=== PATIENT | female | born 1950 | race Caucasian/White ===

== ENCOUNTER 2016-10-03 19:12 | Inpatient (IN) | payer MEDICARE ==
--- NOTE | 2016-10-03 20:03 | EDPRACDOC ---
- General Information Chief Complaint: Dyspnea/Resp distress Stated Complaint: COUGH/PONCHO/FEVER/BACK PAIN Time Seen by Provider: 10/03/16 20:01 Information Source: Patient Mode Of Arrival: Car Home Medications: Home Medications Potassium Chloride [Klor-Con M10] 10 meq PO DAILY 10/03/16 Albuterol/Ipratropium Neb [Duoneb] 3 ml NEB RTQ6 #120 nebu 10/10/16 Aspirin 325 mg PO DAILYWM #30 tablet 10/10/16 Atorvastatin Calcium [Lipitor] 40 mg PO DAILY@1800 #30 tablet 10/10/16 Carvedilol [Coreg] 3.125 mg PO BID #60 tablet 10/10/16 Clopidogrel Bisulfate [Plavix] 75 mg PO DAILY #30 tablet 10/10/16 Docusate Sodium [Colace] 100 mg PO BID PRN #60 capsule 10/10/16 Furosemide [Lasix] 20 mg PO DAILY #30 tablet 10/10/16 Lisinopril [Prinivil] 2.5 mg PO DAILY #30 tablet 10/10/16 Nitroglycerin Sublingual Tab [NTG (NitroStat Sublingual Tab)] 0.4 mg SL PRN PRN #30 tablet 10/10/16 Prednisone [Deltasone, Orasone] 10 mg PO DAILY #40 tablet 10/10/16 Ranolazine [Ranexa] 500 mg PO BID #60 tablet.er 10/10/16 Tiotropium [place] [Spiriva] 18 mcg INH DAILY #1 10/10/16 Allergies/Adverse Reactions: Allergies Allergy/AdvReac Type Severity Reaction Status Date / Time codeine [Codeine] Allergy Anaphylaxis Verified 10/03/16 19:50 * Penicillins Allergy Anaphylaxis Verified 10/03/16 19:50 * - History of Present Illness HPI: SOB, SINCE SATURDAY. SEVERE SOB. H/O PNA. NO H/O CHF. + CHEST PAIN. ED Past Medical History - Patient Medical History Respiratory History: Reports: Emphysema Psychological History: Denies: Substance Use Disorder Systemic History: Denies: Cancer - Social Medical History Social History: Denies: Substance Use Disorder - Physical Exam Constitutional: Alert (Awake) Oriented to: Time, Person, Place Last recorded Vital Signs: Last Vital Signs Temp 99.1 F 10/03/16 19:45 Pulse 108 10/03/16 19:45 Resp 54 H 10/03/16 19:45 BP 122/60 10/03/16 19:45 Pulse Ox 60 L 10/03/16 19:45 Oxygen Pulse Oxygen Saturation 60 O2 Device Room Air Oxygen Flow Rate Fraction of Inspired Oxygen ( FIO2) - HEENT Head: Normal ( normocephalic) Eye Exam: Normal (PERRL, EOMI, Sclera white) Oropharynx: Normal (Pharynx:Moist without exudate,Gums-no swelling) Nose: No Symptoms Reported (septum midline) Neck: Normal (FROM, trachea at midline) - Respiratory/Cardiovascular Respiratory: Rales (DIFFUSE), Tachypnea Cardiovascular: Tachycardia - GI Auscultation: Normal (NABS) Palpation: Normal (Soft,No rebound or guarding, non distended) Tenderness: Non tender Babcock's Sign: Negative - Musculoskeletal Back: Normal (Non-Tender) Extremities: Normal (Normal tone, Pulses 2+ No cyanosis or edema, FROM) - Integumentary Skin: Normal, Warm, Dry Lymphatics: Normal (no adenopathy) - Neurologic Memory Impaired: Normal Motor Function: Normal (Normal tone, Pulses 2+ No cyanosis or edema, FROM) Cranial Nerve: Normal (CN II-X11 intact sensation, strength 5/5) Cerebellar: Normal Mood Description: Normal Perception: Normal ED SOB MDM - Re-evaluation Re-evaluation 1 Re-evaluation Time: 21:22 Re-evaluation: PT IMPROVED. RESPIRATORY BACKED OFF FIO2 TO 45%. - Results Result Diagrams: 10/10/16 05:50 10/10/16 05:50 - EKG EKG #1 EKG Time: 20:07 -: Yes EKG interpreted by me Rate: bpm: 98 [place]bie: Normal Rhythm: ST Block: None ST: Nonsp Comments: ABNORMAL EKG ED Critical Care Note - Critical Care Note Total Time (mins): 30 Comments: Due to the presence of and / or the risk of deterioration, my attendance to this patient required critical care time, including assessment/reassessment, documentation, ordering and interpreting ancillary studies, discussion with ED staff and consultants,patient and family, and excludes time spent on separately billable procedures. - Departure Yes I personally saw and evaluated the patient. Disposition: Admit IP To This Hospital Condition: Improved Final Diagnosis: NSTEMI (non-ST elevated myocardial infarction) Bilateral pneumonia Qualifiers: Pneumonia type: due to unspecified organism Lung location: unspecified part of lung Qualified Code(s): J18.9 - Pneumonia, unspecified organism Sepsis Qualifiers: Sepsis type: sepsis due to unspecified organism Qualified Code(s): A41.9 - Sepsis, unspecified organism Acute respiratory failure Qualifiers: Respiratory failure complication: hypoxia Qualified Code(s): J96.01 - Acute respiratory failure with hypoxia Decision to Admit Time: 20:25 Decision to admit date: 10/03/16 Decision to admit: from ED
[2016-10-03 20:11] LABS: BEb -1.9 (+/- 2); TCO2 25.7 MMOL/L (23-27)
[2016-10-03 20:12] LABS: ABG Draw Site Right Radial; ALLEN'S TEST PASS
--- NOTE | 2016-10-03 20:31 | HISTPHYS ---
- Chief Complaint shortness of breath - History of Present Illness PRIMARY CARE PROVIDER: Dr. Elizalde OCEANIC SCIENCES PROFESSOR: Dr. Oakley HPI: The patient is a 66-year-old woman with COPD, hypertension, who presents with acute shortness of breath along with some chest pain. Onset: 3 days ago. Duration: intermittent. Location: left chest. Radiation: to back. Character: 10/10 at times; now it is gone. Dull like a toothache. Alleviated by: Nothing. Exacerbated by: Nothing. Associated Symptoms: Shortness of breath. No diaphoresis. Coughing productive of yellow sputum. Wheezing. Fever, chills. Chest pain but no palpitations. No leg swelling or weight gain. Treatments: none at home except usual medications. She has chronic respiratory failure and wears 2L NC oxygen, but only at night. Cardiac Risk review: Positive for hypertension, smoking, and family history. No known hyperlipidemia or diabetes. - Medical History Cardiac History: Reports: Hypertension. Denies: Hypercholesterolemia Respiratory History: Reports: COPD, Emphysema, Other (Wears 2L oxygen at night only.) Musculoskeletal History: Reports: Arthritis Systemic History: Denies: Cancer Neurological History: Denies: Cerebrovascular Accident Psychological History: Denies: Substance Use Disorder OTHER HISTORY: ECHOCARDIOGRAM 10/05/2012: EF 60%. Unremarkable study. - Surgical History Reports: Other (No surgeries.) - Medictions/Allergies Allergies codeine [Codeine] Allergy (Verified 10/03/16 19:50) Anaphylaxis* PER PT Penicillins Allergy (Verified 10/03/16 19:50) Anaphylaxis* PER PT Current Medication List: Reviewed Home Medications Potassium Chloride [Klor-Con M10] 10 meq PO DAILY 10/03/16 Triamterene/Hydrochlorothiazid [Triamterene-Hctz 75-50 mg Tab] 1 tab PO DAILY - Family History Reports: Cancer (Mother: ovarian cancer.), Cardiac Disorders (Mother and Father : [place] in 70s.). Denies: Diabetes - Social History Smoking Status: Heavy tobacco smoker (5 or more cigarettes/day or daily pipe/ cigar) (Half ppd currently. Previously 1 ppd. Started 20 yo approx.) Social History: Denies: Alcohol Use, Substance Use Disorder - Review of Systems GENERAL: Fever, chills. No diaphoresis. Positive for fatigue/malaise. HEENT: No ear pain or discharge. No nasal discharge or bleeding. No throat pain or swelling. No eye pain or eye redness. RESPIRATORY: Shortness of breath. No diaphoresis. Coughing productive of yellow sputum. Wheezing. CARDIOVASCULAR: Chest pain but no palpitations. GI: No abdominal pain, nausea, vomiting, diarrhea, constipation, or bloody stool. NEUROLOGICAL: No headache or focal weakness. INTEGUMENT: no rashes, itching, or lesions. LYMPHATIC SYSTEM: no lymph node swelling or pain. MUSCULOSKELETAL: no pain or joint swelling. GENITOURINARY: No dysuria or hematuria. ENDOCRINE: No polyuria or polydipsia. HEME: No chronic anemia, bleeding. Positive for easy bruising. - Physical Exam Vital Signs: Initial Vitals Temperature 99.1 F 10/03/16 19:45 Pulse Rate 108 10/03/16 19:45 Respiratory Rate 54 H 10/03/16 19:45 Blood Pressure 122/60 10/03/16 19:45 Pulse Oxygen Saturation 60 L 10/03/16 19:45 Weight: 67 kg Height: 5 feet 6 inches BMI: 24 - Other Exam Other Exam Findings: GENERAL: Ill-appearing, well nourished, in acute distress. HEENT: Normocephalic, atraumatic; pupils equal and round. Nares patent, without discharge or bleeding. No oropharyngeal lesions or erythema. Mucous membranes are dry. NECK: is supple, no masses, trachea midline. RESPIRATORY: Clear to auscultation bilaterally. Chest wall movements are symmetric. Use of accessory muscles to breathe. Tachypnea, severe. Bilateral wheezing. Bilateral rhonchi. No rales. Evaluated while on BiPAP. CARDIOVASCULAR: Normal S1, S2. Murmur 2/6 systolic. No rubs, or gallops. PMI non -displaced. Carotids: no carotid bruits. Mild tachycardia. DP pulses 1-2+ bilaterally. GI: soft, nontender, non-distended, normal active bowel sounds. No hepatosplenomegaly. INTEGUMENT: Clean, dry, and intact. No rashes. No lesions. MUSCULOSKELETAL: Moving all extremities. No cyanosis. No clubbing. Edema: none bilaterally. NEUROLOGICAL: Cranial nerves 2-12 grossly intact. Motor 4/5 throughout. Reflexes : 2+ bilaterally. Babinski: toes downgoing bilaterally. Intact Finger to nose. Sensory grossly intact to light touch. Intact rapid alternating movements bilaterally. No pronator drift. PSYCHIATRIC: Fully oriented. Normal and appropriate affect. LYMPHATIC: No cervical lymphadenopathy. No supraclavicular lymphadenopathy. - Lab Results Laboratory Results - last 24 hr 10/03/16 10/03/16 10/03/16 19:53 20:05 20:10 WBC RBC Hgb Hct MCV MCH MCHC RDW Plt Count MPV Neut % (Auto) Lymph % (Auto) [place] % (Auto) Eos % (Auto) Baso % (Auto) Absolute Neuts (auto) Absolute Lymphs (auto) Seg Neuts % (Manual) Band Neutrophils % Lymphocytes % (Manual) Monocytes % (Manual) Basophils % (Manual) Absolute Neutrophils Absolute Lymphocytes Vacuolated Neuts Toxic Granulation Platelet Estimate RBC Morphology PT INR APTT Puncture Site Right radial pH 7.330 L pCO2 46.0 H pO2 49.0 L* HCO3 24.3 Total CO2 25.7 Base Excess -1.9 FiO2 % 15 liters nrb Specimen Drawn By Robcha Sodium 136 L Potassium 3.1 L Chloride 92 L Carbon Dioxide 28 Anion Gap 19 H BUN 36 H Creatinine 1.50 H Estimated GFR (MDRD) 35 L Glucose 119 H Calculated Osmolality 271 Lactic Acid Calcium 9.5 Corrected Calcium 9.6 Total Bilirubin 0.9 AST 43 H ALT 37 Alkaline Phosphatase 107 Creatine Kinase 87 Troponin I 0.58 H* Hxo-Q-Njynocgoxmr Pept 9050 H Total Protein 7.8 Albumin 3.9 Lipase 47 Urine Color Yellow Urine Clarity Cldy Urine pH 6.0 Ur Specific [place] 1.015 Urine Protein 3+ H Urine Glucose (UA) Neg Urine Ketones 1+ H Urine Occult Blood 3+ H Urine Nitrite Neg Urine Bilirubin Neg Urine Urobilinogen 2 H Ur Leukocyte Esterase Neg Urine RBC 10-20 H Urine WBC 5-10 H Ur Epithelial Cells 2+ Amorphous Sediment Occ Urine Bacteria Few Granular Casts Tntc H Urine Mucus Occ 10/03/16 10/03/16 10/03/16 20:10 20:10 20:10 WBC 15.9 H RBC 4.73 Hgb 13.7 Hct 41.5 MCV 88 MCH 28.9 MCHC 32.9 L RDW 14.1 Plt Count 262 MPV 8.5 Neut % (Auto) Cancelled Lymph % (Auto) Cancelled [facility] % (Auto) Cancelled Eos % (Auto) Cancelled Baso % (Auto) Cancelled Absolute Neuts (auto) Cancelled Absolute Lymphs (auto) Cancelled Seg Neuts % (Manual) 61 Band Neutrophils % 8 H Lymphocytes % (Manual) 13 L Monocytes % (Manual) 17 H Basophils % (Manual) 1 Absolute Neutrophils 10.97 H Absolute Lymphocytes 2.07 Vacuolated Neuts 1+ Toxic Granulation 1+ Platelet Estimate Norm RBC Morphology Norm PT 10.7 INR 1.0 APTT 30.3 Puncture Site pH pCO2 pO2 HCO3 Total CO2 Base Excess FiO2 % Specimen Drawn By Sodium Potassium Chloride Carbon Dioxide Anion Gap BUN Creatinine Estimated GFR (MDRD) Glucose Calculated Osmolality Lactic Acid 1.7 Calcium Corrected Calcium Total Bilirubin AST ALT Alkaline Phosphatase Creatine Kinase Troponin I Qnl-O-Xvdpbzjrjof Pept Total Protein Albumin Lipase Urine Color Urine Clarity Urine pH Ur Specific [place] Urine Protein Urine Glucose (UA) Urine Ketones Urine Occult Blood Urine Nitrite Urine Bilirubin Urine Urobilinogen Ur Leukocyte Esterase Urine RBC Urine WBC Ur Epithelial Cells Amorphous Sediment Urine Bacteria Granular Casts Urine Mucus Troponin #2 at 23:15: 0.64 H* - Diagnostic Findings EK beats per minute. Normal sinus rhythm. ST depression in leads 2, 3, and AVF. Nonspecific ST abnormality. Reviewed EKG personally. Chest x-ray, viewed personally: EXAM: PORTABLE CHEST - 1 VIEW COMPARISON: 01/05/2015 FINDINGS: Cardiac shadow is stable. Patchy infiltrates are noted bilaterally but worst in the right upper lobe. No sizable effusion is seen. No acute bony abnormality is noted. IMPRESSION: Patchy bilateral infiltrates likely related to pneumonia. Followup PA and lateral chest X-ray is recommended in 3-4 weeks following trial of antibiotic therapy to ensure resolution and exclude underlying malignancy. - Assessment (1) Acute and chronic respiratory failure with hypoxia J96.21 - ACUTE AND CHRONIC RESPIRATORY FAILURE WITH HYPOXIA Acute Present on Admission: Yes Wears 2L NC but only at night. Severe respiratory distress with peripheral O2 sat of only 60 when she arrived in the emergency department. Patient has dyspnea and is not improving. Patient's PO2 is low. Etiology is likely multifactorial, with pneumonia and COPD as the primary causes. Plan: Place patient on oxygen by BiPAP 65 % and increase as needed. Monitor oxygen saturation levels and keep O2 sats greater than 91%. (2) Acute coronary syndrome I24.9 - ACUTE ISCHEMIC HEART DISEASE, UNSPECIFIED Acute Present on Admission: Yes Patient with chest pain, EKG ST depressions, and elevated troponin. While this could be due to sepsis, the combination of history and findings is concerning for NSTEMI. Plan: Obtain cardiac enzymes x 3. Place patient on telemetry. Give patient oxygen, aspirin. Give nitroglycerin as needed for chest pain. Give statin. Start beta ashok and PARKER inhibitor if patient's blood pressure is not too low. Lovenox 1 mg/kg q 12 hours. (3) Sepsis A41.9 - SEPSIS, UNSPECIFIED ORGANISM Acute Present on Admission: Yes Qualifiers: Sepsis type: sepsis due to unspecified organism Qualified Code(s): A41.9 - Sepsis, unspecified organism Early sepsis. Present on admission. Criteria: Pulse 108. Respiratory rate 54. WBCs 15.9. Source: pneumonia. Plan: Sepsis order set. IV antibiotics: IV ceftriaxone and IV Levaquin IV fluids to provide volume. Monitor for signs of volume depletion, monitor blood pressure carefully. If still hypotensive with IV fluids consider pressors. Close monitoring. Telemetry. IVF: initial IVF 30 mL/kg x 1, then 250 mL/hr x 1 L, then maintenance IVF. (4) Bacterial pneumonia J15.9 - UNSPECIFIED BACTERIAL PNEUMONIA Acute Present on Admission: Yes Pneumonia. Severe. Requiring continuous oxygen support. Type: Community acquired pneumonia. Criteria for diagnosis: Chest x-ray suggestive of pneumonia, rhonchi on physical exam. Likely bacterial. Plan: Admit to ICU due to severity. Sputum culture has been ordered. Treat with IV ceftriaxone and IV Levaquin. Monitor oxygen saturation levels. (5) COPD exacerbation J44.1 - CHRONIC OBSTRUCTIVE PULMONARY DISEASE W (ACUTE) EXACERBATION Acute Present on Admission: Yes COPD exacerbation, severe. Plan: Nebs of Duoneb q 6 hours scheduled and albuterol q 2 hours prn. Sputum culture ordered. IV ceftriaxone and IV Levaquin. IV methylprednisolone. Continuous oxygen support. Keep sats below 95% due to COPD. (6) Acute kidney injury N17.9 - ACUTE KIDNEY FAILURE, UNSPECIFIED Acute Present on Admission: Yes Baseline Cr is 0.57. Admission Cr is 1.5. Likely due to dehydration. Plan: IVFs. (7) Elevated brain natriuretic peptide (BNP) level R79.89 - OTHER SPECIFIED ABNORMAL FINDINGS OF BLOOD CHEMISTRY Acute Present on Admission: Yes Elelvated BNP of 9050 on admission. Patient denies history of CHF; she denies recent lower extremity edema or weight gain. Patient is at risk for volume overload due to need for IVF for sepsis. Plan: Monitor lung exam. (8) Hypokalemia E87.6 - HYPOKALEMIA Acute Present on Admission: Yes Replace potassium with KCl. Check magnesium level and replace as needed. (9) Proteinuria R80.9 - PROTEINURIA, UNSPECIFIED Acute Present on Admission: Yes Patient with 3+ proteinuria on admission. Plan: Outpatient recheck recommended with primary care physician. (10) Tobacco abuse Z72.0 - TOBACCO USE Acute Present on Admission: Yes Counseled to quit. (11) Abnormal chest x-ray R93.8 - ABNORMAL FINDINGS ON DIAGNOSTIC IMAGING OF BODY STRUCTURES Acute Present on Admission: Yes CXR impression: Patchy bilateral infiltrates likely related to pneumonia. Followup PA and lateral chest X-ray is recommended in 3-4 weeks following trial of antibiotic therapy to ensure resolution and exclude underlying malignancy. Plan: * NOTE to DR. ELIZALDE: Please consider ordering a follow up PA and Lateral chest x-ray in 3-4 weeks to ensure resolution. - Plan In summary, this patient is acutely and critically ill. The patient requires treatment of vital organ failure and measures to prevent further life- threatening deterioration of condition. Reviewed old records. Reviewed EKG personally. Review chest x-ray personally. I have spent 70 min in the critical care of this patient. Case Care Discussed with: Patient, Nursing Staff Critical Care: Yes Code: 291 - Focused CV Perfusion Exam Date exam occurred: 10/03/16 Time of Exam: 22:20 Vital Signs: Last Vital Signs Temp 99.1 F 10/03/16 19:45 Pulse 101 10/03/16 21:38 Resp 47 H 10/03/16 21:38 BP 104/59 L 10/03/16 21:38 Pulse Ox 93 10/03/16 21:38 Respiratory: Chest non-tender, Respiratory distress, Rhonchi, Wheezing Cardiovascular/Chest: Tachycardia, Systolic murmur Capillary Refill: Immediate Peripheral pulses: Diminished: Dorsalis pedis (R), Dorsalis pedis (L), Posterior tibialis (R), Posterior tibialis (L), Full: Radial (R), Radial (L) Skin Color: Unremarkable. negative: Pale, Cyanotic Skin Turgor: <3 Seconds
[2016-10-03 20:38] LABS: MPV 8.5 fL (7.4-10.4)
[2016-10-03] MEDS ORDERED: Albuterol/Ipratropium Neb 3 ML NEB NEB ONE (20:40)
--- NOTE | 2016-10-03 20:40 | DIRPT ---
CLINICAL DATA: Shortness of breath and cough for 3 days EXAM: PORTABLE CHEST - 1 VIEW COMPARISON: 01/05/2015 FINDINGS: Cardiac shadow is stable. Patchy infiltrates are noted bilaterally but worst in the right upper lobe. No sizable effusion is seen. No acute bony abnormality is noted. IMPRESSION: Patchy bilateral infiltrates likely related to pneumonia. Followup PA and lateral chest X-ray is recommended in 3-4 weeks following trial of antibiotic therapy to ensure resolution and exclude underlying malignancy. Electronically Signed By: To Zaldivar M.D. On: 10/03/2016 20:37
[2016-10-03 20:42] LABS: BLOOD UREA NITROGEN 36 MG/DL (7-17); CALC CORRECTED 9.6 MG/DL (8.4-10.2); CALCIUM 9.5 MG/DL (8.4-10.2); CALCULATED OSMOLALITY 271 MOs/Kg (270-290); CHLORIDE 92 mEq/L (98-107); CPK TOTAL WITH POSSIBLE MB 87 IU/L (30-134); GLUCOSE 119 MG/DL (70-99); SODIUM LEVEL 136 mEq/L (137-146); TOTAL PROTEIN 7.8 G/DL (6.3-8.2)
[2016-10-03 20:45] LABS: PARTIAL THROMB. TIME 30.3 SEC (22-35)
[2016-10-03 20:46] LABS: AMORPHOUS OCC; LEUKOCYTES/URINE NEG (NEGATIVE); NITRITE/URINE NEG (NEGATIVE); URINE OCCULT BLOOD 3+ (NEG/TRACE)
[2016-10-03] MEDS ORDERED: NS 500 ML IV ONE (21:00)
[2016-10-03] MEDS ORDERED: Levofloxacin 750 mg/150 ml D5W 750 MG/150 ML RTU IV ONE (21:01)
[2016-10-03] MEDS ORDERED: CEFTRIAXONE 1 GM in D5W 100 ML IV ONE (21:05)
[2016-10-03 21:06] LABS: SEG NEUTROPHIL 61 % (45-76)
[2016-10-03 21:08] LABS: TOTAL CELL COUNT 100
[2016-10-03] MEDS ORDERED: NS 1,000 ML IV ONE ×2 (21:15→22:47)
[2016-10-03] MEDS ORDERED: ASPIRIN 300 MG SUPP PR ONE (21:20)
[2016-10-03] MEDS ORDERED: SIMETHICONE 80 MG TAB PO PRN (22:42)
[2016-10-03] MEDS ORDERED: SENNA CONCENTRATE TAB PO PRN (22:42)
[2016-10-03] MEDS ORDERED: BENZONATATE 100 MG PERLES PO PRN (22:42)
[2016-10-03] MEDS ORDERED: TEMAZEPAM 15 MG CAP PO PRN (22:42)
[2016-10-03] MEDS ORDERED: BISACODYL 5 MG TAB PO PRN (22:42)
[2016-10-03] MEDS ORDERED: PROMETHAZINE 25 MG/ML VIAL IV PRN (22:42)
[2016-10-03] MEDS ORDERED: Docusate Sodium 100 MG CAP PO PRN (22:42)
[2016-10-03] MEDS ORDERED: ONDANSETRON HCL 4 MG/2 ML VIAL IV PRN (22:42)
[2016-10-03] MEDS ORDERED: GUAIFEN 100 MG-DEXTROMETH 10 MG PER 5 ML PO PRN (22:42)
[2016-10-03] MEDS ORDERED: NITROGLYCERINE 0.4 MG TAB SL PRN (22:42)
[2016-10-03] MEDS ORDERED: ALBUTEROL 0.083% 3 ML NEB NEB PRN (22:51)
[2016-10-03] MEDS ORDERED: Enoxaparin 1 mg per kg per dose SQ SCH (23:00)
[2016-10-03] MEDS ORDERED: LISINOPRIL 2.5 MG TAB PO SCH (23:00)
[2016-10-03] MEDS ORDERED: Pharmacy Order Set Alert SCH ×2 (23:00)
[2016-10-03] MEDS: CARVEDILOL 3.125 MG TAB PO SCH (23:28)
[2016-10-03] MEDS: ATORVASTATIN 40 MG TAB PO SCH (23:28)
[2016-10-03] MEDS: ENOXAPARIN 80 MG/0.8 ML PFS SQ SCH (23:34)
[2016-10-03] MEDS: METHYLPREDNISOLONE 125 MG/2 ML VIAL IV SCH (23:36)
[2016-10-04] MEDS ORDERED: NS 1,000 ML IV ONE (00:48)
[2016-10-04] MEDS ORDERED: Vaccine Screening Complete SCH (01:00)
[2016-10-04 02:40] LABS: ALLEN'S TEST PASS; BEb -1.6 (+/- 2); TCO2 27.2 MMOL/L (23-27)
[2016-10-04] MEDS: Albuterol/Ipratropium Neb 3 ML NEB NEB SCH ×5 (02:40→19:47)
[2016-10-04 02:43] LABS: ABG Draw Site Right Radial; BI-PAP 14/7 cm H2O
[2016-10-04] MEDS: KCl 10 mEq/100 ml Premix (Run) 10 MEQ/100 ML RTU IV SCH ×6 (03:12→08:18)
[2016-10-04 04:05] LABS: MPV 8.7 fL (7.4-10.4)
[2016-10-04 04:44] LABS: BLOOD UREA NITROGEN 34 MG/DL (7-17); CALCIUM 8.1 MG/DL (8.4-10.2); CALCULATED OSMOLALITY 272 MOs/Kg (270-290); CHLORIDE 98 mEq/L (98-107); GLUCOSE 128 MG/DL (70-99); LDL (calc.) 52.6 MG/DL (<100); SODIUM LEVEL 136 mEq/L (137-146); VLDL (calc.) 12.4 MG/DL (5-40)
[2016-10-04] MEDS: NS 1,000 ML IV SCH ×3 (05:17→22:33)
[2016-10-04] MEDS: METHYLPREDNISOLONE 125 MG/2 ML VIAL IV SCH ×3 (06:12→22:33)
--- NOTE | 2016-10-04 08:04 | GENMEDPROG ---
Chief Complaint: Elevated troponin, pneumonia, COPD exacerbation Subjective Note: Says that she is feeling more comfortable, she is still tachypneic. Breathing on the BiPAP since admission to the intensive care unit. Denies any current chest pain, nausea. No significant cough at this time. Notes Reviewed: Yes Events from last night noted and discussed with Clinical Staff Current Medication List: Reviewed - Physical Examination Vital Signs and I&O: Last Vital Signs Temp 97.9 F 10/04/16 06:00 Pulse 76 10/04/16 07:31 Resp 21 10/04/16 05:30 BP 94/57 L 10/04/16 06:00 Pulse Ox 96 10/04/16 06:00 Oxygen Pulse Oxygen Saturation 96 O2 Device BiPAP Oxygen Flow Rate Fraction of Inspired Oxygen ( 80 FIO2) Intake & Output 10/02/16 10/03/16 10/04/16 10/05/16 06:59 06:59 06:59 06:59 Intake Total 2662 Output Total 175 Balance 2487 Patient's weight 67.495 kg General: Alert, Oriented x3, Cooperative, Mild distress Neck: Normal Trachea alignment, Normal inspection Lymphatics: Normal (no adenopathy) Respiratory: Rales (DIFFUSE), Tachypnea. negative: Accessory Muscle Use Cardiovascular: Regular rate, No Gallops,Rubs/Murmurs GI: Normal bowel sounds, Soft, Non tender (non distended) Extremities/Musculoskeletal: Other (Normal Tone). negative: Edema, Cyanosis Psych/Mental Status: Appropriate, Normal Affect, Cooperative Lab/DI/Studies Reviewed: Laboratory Tests 10/03/16 10/04/16 10/04/16 20:10 03:15 03:15 WBC 11.5 H Hgb 11.7 L D Potassium 3.1 L 3.3 L - Assessment (1) Abnormal chest x-ray Acute R93.8 - ABNORMAL FINDINGS ON DIAGNOSTIC IMAGING OF BODY STRUCTURES Comment/Plan: CXR impression: Patchy bilateral infiltrates likely related to pneumonia. Followup PA and lateral chest X-ray is recommended in 3-4 weeks following trial of antibiotic therapy to ensure resolution and exclude underlying malignancy. Plan: Treating as below. (2) Acute and chronic respiratory failure with hypoxia Acute J96.21 - ACUTE AND CHRONIC RESPIRATORY FAILURE WITH HYPOXIA Comment/ Plan: Wears 2L NC but only at night. Severe respiratory distress with peripheral O2 sat of only 60 when she arrived in the emergency department. Patient has dyspnea and is not improving. Patient's PO2 is low. Etiology is likely multifactorial, with pneumonia and COPD as the primary causes. Plan: Place patient on oxygen by BiPAP 65 % and increase as needed. Monitor oxygen saturation levels and keep O2 sats greater than 91%. Second BiPAP done early this morning with improving oxygenation. She is still tachypneic, though her CO2 level is acceptable. If she still tachypneic and a couple of hours, will obtain repeat blood gas. (3) Acute coronary syndrome Acute I24.9 - ACUTE ISCHEMIC HEART DISEASE, UNSPECIFIED Comment/Plan: Patient with chest pain, EKG ST depressions, and elevated troponin. While this could be due to sepsis, the combination of history and findings is concerning for NSTEMI. Plan: Obtain cardiac enzymes x 3. Place patient on telemetry. Give patient oxygen, aspirin. Give nitroglycerin as needed for chest pain. Give statin. Beta-ashok and low-dose PARKER-inhibitor have been initiated. Lovenox 1 mg/kg q 12 hours. Cardiology has been consulted by admitting physician. (4) Acute kidney injury Acute N17.9 - ACUTE KIDNEY FAILURE, UNSPECIFIED Comment/Plan: Baseline Cr is 0.57. Admission Cr is 1.5. Likely due to dehydration. Plan: IVFs. (5) Acute respiratory failure Acute J96.00 - ACUTE RESPIRATORY FAILURE, UNSP W HYPOXIA OR HYPERCAPNIA Qualifiers: Respiratory failure complication: hypoxia Qualified Code(s): J96.01 - Acute respiratory failure with hypoxia (6) Bacterial pneumonia Acute J15.9 - UNSPECIFIED BACTERIAL PNEUMONIA Comment/Plan: Pneumonia. Severe. Requiring continuous oxygen support. Type: Community acquired pneumonia. Criteria for diagnosis: Chest x-ray suggestive of pneumonia, rhonchi on physical exam. Likely bacterial. Plan: Admit to ICU due to severity. Sputum culture has been ordered. Treat with IV ceftriaxone and IV Levaquin. Monitor oxygen saturation levels. (7) COPD exacerbation Acute J44.1 - CHRONIC OBSTRUCTIVE PULMONARY DISEASE W (ACUTE) EXACERBATION Comment/Plan: COPD exacerbation, severe. Plan: Nebs of Duoneb q 6 hours scheduled and albuterol q 2 hours prn. Sputum culture ordered. IV ceftriaxone and IV Levaquin. IV methylprednisolone. Continuous oxygen support. Keep sats below 95% due to COPD. (8) Hypokalemia Acute E87.6 - HYPOKALEMIA Comment/Plan: Replace potassium with KCl. Check magnesium level and replace as needed. (9) NSTEMI (non-ST elevated myocardial infarction) Acute I21.4 - NON-ST ELEVATION (NSTEMI) MYOCARDIAL INFARCTION - Plan In summary this patient is acutely and critically ill. The patient requires treatment of vital organ failure and measures to prevent further life- threatening deterioration of the above conditions. I personally reviewed and ordered lab testing, as well as imaging. I reviewed old medical records from previous hospitalizations as available, and spent the time mentioned below in critical care of this patient including counseling and coordination of care. Total Time: 70
[2016-10-04] MEDS ORDERED: LORAZEPAM 2 MG/ML VIAL IV PRN (08:36)
--- NOTE | 2016-10-04 08:53 | CAPUEKG ---
[place], [place] Test Date: 2016-10-04 Pat Name: SELVIN MORRISON Department: Room: ICU Gender: Female Manager Game: : Requested By: Order Number: Reading MD: Shamar Adam MD Measurements Intervals [place] Rate: 78 P: 67 [place]: 120 QRS: 63 QRSD: 88 T: 27 QT: 396 QTc: 451 Interpretive Statements Normal sinus rhythm T wave abnormality, consider anterior ischemia Abnormal ECG Electronically Signed On 10-04-16 08:53:12 EST by Shamar Adam MD <[id number] [id number]
[2016-10-04] MEDS: CARVEDILOL 3.125 MG TAB PO SCH ×2 (09:01→21:26)
[2016-10-04] MEDS: ASPIRIN 325 MG TAB PO SCH (09:01)
[2016-10-04] MEDS: LISINOPRIL 2.5 MG TAB PO SCH (09:01)
[2016-10-04] MEDS: ENOXAPARIN 80 MG/0.8 ML PFS SQ SCH ×2 (10:55→22:34)
[2016-10-04 11:41] LABS: ALLEN'S TEST PASS; BEb -2.9 (+/- 2); TCO2 25.1 MMOL/L (23-27)
[2016-10-04 11:42] LABS: ABG Draw Site Right Radial; ABG Draw Tech SPEMA; MODE BILEVEL 14/8 RATE
--- NOTE | 2016-10-04 12:00 | PCM.CARDCO ---
Consultation Date: 10/04/16 Requesting Physician: Sohail Velazquez Quality Audit Representative: Shamar Adam Consult Reason: NSTEMI - History of Present Illness Patient came into the hospital with respiratory distress and has multiple risk factors for coronary artery disease. Patient is diagnosed with pneumonitis and is being treated. She is on BiPAP at the time of my evaluation. My partner was consulted about her and he let me know about the consultation. At the time of my evaluation patient is on BiPAP. Does not communicate much. She is in no respiratory distress and hemodynamically stable. Chief Complaint: shortness of breath - Past Medical and Surgical History Cardiac History: Reports: Hypertension. Denies: Hypercholesterolemia Respiratory History: Reports: COPD, Emphysema, Other (Wears 2L oxygen at night only.) Systemic History: Denies: Cancer Musculoskeletal History: Reports: Arthritis Psychological History: Denies: Alcoholism, Substance Use Disorder Neurological History: Denies: Cerebrovascular Accident Past Surgical History: Reports: Other (No surgeries.) Allergies codeine [Codeine] Allergy (Verified 10/03/16 19:50) Anaphylaxis* PER PT Penicillins Allergy (Verified 10/03/16 19:50) Anaphylaxis* PER PT Home Medications Potassium Chloride [Klor-Con M10] 10 meq PO DAILY 10/03/16 Triamterene/Hydrochlorothiazid [Triamterene-Hctz 75-50 mg Tab] 1 tab PO DAILY - Social History Smoking Status: Heavy tobacco smoker (5 or more cigarettes/day or daily pipe/ cigar) (Half ppd currently. Previously 1 ppd. Started 20 yo approx.) Social History: Denies: Alcohol Use, Substance Use Disorder - Family History Reports: Cancer (Mother: ovarian cancer.), Cardiac Disorders (Mother and Father : [place] in 70s.). Denies: Diabetes - Physical Exam Constitutional: Alert (Awake) Oriented to: Time, Person, Place Exam: Last Vital Signs Temp 98.3 F 10/04/16 11:00 Pulse 73 10/04/16 11:00 Resp 28 H 10/04/16 11:35 BP 95/65 L 10/04/16 11:00 Pulse Ox 93 10/04/16 11:35 Intake & Output 10/03/16 10/04/16 10/04/16 23:59 07:59 15:59 Intake Total 615 2047 701 Output Total 50 125 200 Balance 565 1922 501 Patient's weight 67.495 kg 67.495 kg - HEENT Head: Normal ( normocephalic) Eye: Normal (PERRL, EOMI, Sclera white) Oropharynx: Normal (Pharynx:Moist without exudate,Gums-no swelling) Nose: No Symptoms Reported (septum midline) - Respiratory/Cardiovascular Respiratory: Diminished, Rales (DIFFUSE), Tachypnea. negative: Accessory Muscle Use Cardiovascular: Other (S1-S2 regular 2/6 systolic murmur at the apex) - GI Auscultation: Normal (NABS) Palpation: Normal (Soft,No rebound or guarding, non distended) Tenderness: Non tender - Musculoskeletal Back: Normal (Non-Tender) Extremities: Normal (Normal tone, Pulses 2+ No cyanosis or edema, FROM) - Integumentary Lymphatics: Normal (no adenopathy) - Neurologic Memory Impaired: Normal Cerebellar: Normal Mood Description: Normal Perception: Normal - Other Exam Other Exam Findings: Abdomen nontender. No cyanosis clubbing or pedal edema on the extremity evaluation. Neurological and musculoskeletal examination are difficult to evaluate because of patient's general condition. - Assessment/Plan (1) Acute and chronic respiratory failure with hypoxia J96.21 - ACUTE AND CHRONIC RESPIRATORY FAILURE WITH HYPOXIA Acute Comment: This is managed by the hospitalist. Patient is getting adequate oxygenation at this time and her status is monitored closely. (2) Bacterial pneumonia J15.9 - UNSPECIFIED BACTERIAL PNEUMONIA Acute Comment: Again patient is receiving aggressive antibiotic treatment. (3) NSTEMI (non-ST elevated myocardial infarction) I21.4 - NON-ST ELEVATION (NSTEMI) MYOCARDIAL INFARCTION Acute Comment: Secondary prevention will be observed. I will make sure that the patient is on appropriate medications for cardio protection. (4) Tobacco abuse Z72.0 - TOBACCO USE Acute Comment: She will be advised about smoking cessation and ill effects of smoking at appropriate time when her general condition improves
[2016-10-04] MEDS: ATORVASTATIN 40 MG TAB PO SCH (17:35)
[2016-10-04] MEDS: CEFTRIAXONE 1 GM in D5W 100 ML IV SCH (21:26)
[2016-10-04] MEDS: CHLORHEXIDINE (HIBICLENS) 4 OZ BOTTLE TOP SCH (22:31)
[2016-10-05] MEDS: Albuterol/Ipratropium Neb 3 ML NEB NEB SCH ×4 (01:46→20:41)
[2016-10-05] MEDS: NS 1,000 ML IV SCH ×4 (02:43→17:20)
[2016-10-05 03:04] LABS: MPV 8.9 fL (7.4-10.4)
[2016-10-05 03:10] LABS: BLOOD UREA NITROGEN 34 MG/DL (7-17); CALCULATED OSMOLALITY 283 MOs/Kg (270-290); CHLORIDE 107 mEq/L (98-107); GLUCOSE 136 MG/DL (70-99); SODIUM LEVEL 142 mEq/L (137-146)
[2016-10-05] MEDS: METHYLPREDNISOLONE 125 MG/2 ML VIAL IV SCH ×3 (06:11→23:06)
--- NOTE | 2016-10-05 07:53 | PCM.CARD ---
- Subjective Reason for visit: Elevated troponin in the setting of demand with respiratory failure and pneumonia Current Assessment: No New Symptoms, Cough, Shortness of Breath. negative: Chest Pain, Nausea, Palpitations, Vomiting Upon questioning she relates that she has episodic exertional chest tightness relieved with rest, her daughter relates that many years ago when she had pneumonia she had evidence of myocardial infarction but did not have coronary arteriography. Vital Signs: Last Vital Signs Temp 97.6 F 10/05/16 07:00 Pulse 64 10/05/16 07:00 Resp 28 H 10/05/16 07:00 BP 109/56 L 10/05/16 07:00 Pulse Ox 97 10/05/16 07:00 PE: Alert presently is off BiPAP with a sad in the range of 84% Respiratory: Diminished, Wheezes (Diffusely) Jugular Vein Distention: None Pulse Rhythm: Regular EKG Rhythm: Sinus Rhythm (One episode of nonsustained VT) Heart Sounds: Distant. negative: S3, Murmur (No edema neck vein distention) Lab/DI Results Reviewed: Laboratory Tests 10/03/16 10/04/16 10/04/16 23:15 07:30 10:04 WBC Hgb Potassium Creatinine Estimated GFR (MDRD) Troponin I 0.64 H* 0.25 0.19 10/05/16 10/05/16 02:20 02:20 WBC 13.1 H Hgb 11.5 L Potassium 3.7 Creatinine 1.00 Estimated GFR (MDRD) 55 L Troponin I Her EKG shows ischemic biphasic deep T-wave inversion in leads V1 to V3 consistent with Wellens syndrome - Assessment/Plan (1) NSTEMI (non-ST elevated myocardial infarction) Acute I21.4 - NON-ST ELEVATION (NSTEMI) MYOCARDIAL INFARCTION Present on Admission: Yes Comment/Plan: Clinically she has non ST elevation [place] type 2. She remains tenuous with her oxygenation and is bronchospastic and I would continue medical therapy but avoid beta-blockers and I will place her on ranolazine which is safe ineffective with acute coronary syndrome. Her EKG is typical for patient with severe proximal LAD stenosis and a poor prognosis. Met with the patient her daughter and advised undergo coronary arteriography when she is ready for hospital discharge there are in agreement. If not done order echocardiogram for today continue aspirin Lovenox a high intensity statin. (2) Bacterial pneumonia Acute J15.9 - UNSPECIFIED BACTERIAL PNEUMONIA Present on Admission: Yes Comment/Plan: Slowly improving managed by our hospitalist group (3) Sepsis Acute A41.9 - SEPSIS, UNSPECIFIED ORGANISM Present on Admission: Yes sepsis due to unspecified organism A41.9 - Sepsis, unspecified organism Comment/Plan: Showing signs of improvement
--- NOTE | 2016-10-05 08:28 | GENMEDPROG ---
Chief Complaint: Pneumonia, respiratory failure, acute coronary syndrome Subjective Note: Doing well this morning, has been on BiPAP overnight. Denies any chest pain. Has been coughing a little bit this morning. Daughter is at the bedside. Notes Reviewed: Yes Events from last night noted and discussed with Clinical Staff Current Medication List: Reviewed Currently: Reports: Cough, Wheezing, PAYAN, SOB DVT Prophylaxis: Yes - Physical Examination Vital Signs and I&O: Last Vital Signs Temp 97.6 F 10/05/16 07:00 Pulse 65 10/05/16 08:00 Resp 28 H 10/05/16 07:00 BP 110/65 10/05/16 08:00 Pulse Ox 96 10/05/16 08:00 Oxygen Pulse Oxygen Saturation 96 O2 Device BiPAP Oxygen Flow Rate Fraction of Inspired Oxygen ( 60 FIO2) Intake & Output 10/03/16 10/04/16 10/05/16 10/06/16 06:59 06:59 06:59 06:59 Intake Total 2662 2911 Output Total 175 725 Balance 2487 2186 Patient's weight 67.495 kg 72.03 kg General: Alert, Oriented x3, No acute distress HEENT: EOMI (Sclera white) Neck: Normal Trachea alignment, Normal inspection Lymphatics: Normal (no adenopathy) Respiratory: Diminished, Rales (DIFFUSE), Tachypnea. negative: Accessory Muscle Use Cardiovascular: Regular rate, No Gallops,Rubs/Murmurs GI: Normal bowel sounds, Soft, Non tender (non distended) Extremities/Musculoskeletal: Other (Normal Tone). negative: Edema, Cyanosis Lab/DI/Studies Reviewed: Laboratory Tests 10/03/16 10/04/16 10/04/16 20:10 03:15 07:30 WBC Hgb Potassium Creatinine 1.50 H 1.10 H Troponin I 0.58 H* 0.25 10/04/16 10/05/16 10/05/16 10:04 02:20 02:20 WBC 13.1 H Hgb 11.5 L Potassium 3.7 Creatinine 1.00 Troponin I 0.19 - Assessment (1) Abnormal chest x-ray Acute R93.8 - ABNORMAL FINDINGS ON DIAGNOSTIC IMAGING OF BODY STRUCTURES Comment/Plan: CXR impression: Patchy bilateral infiltrates likely related to pneumonia. Followup PA and lateral chest X-ray is recommended in 3-4 weeks following trial of antibiotic therapy to ensure resolution and exclude underlying malignancy. Plan: Treating as below. (2) Acute and chronic respiratory failure with hypoxia Acute J96.21 - ACUTE AND CHRONIC RESPIRATORY FAILURE WITH HYPOXIA Comment/ Plan: Wears 2L NC but only at night. Severe respiratory distress with peripheral O2 sat of only 60 when she arrived in the emergency department. Patient has dyspnea that is now finally improved after being on BiPAP overnight. Etiology is likely multifactorial, with pneumonia and COPD as the primary causes. Plan: Patient has been placed on oxygen by BiPAP since 5%, increased as needed. She is not doing better we will attempt to wean her off of BiPAP today. Plan on alternating on off every 3 hours. Discussed at the bedside with nursing staff. Monitor oxygen saturation levels and keep O2 sats greater than 91% today. (3) Acute coronary syndrome Acute I24.9 - ACUTE ISCHEMIC HEART DISEASE, UNSPECIFIED Comment/Plan: Patient with chest pain, EKG ST depressions, and elevated troponin. While this could be due to sepsis, the combination of history and findings is concerning for NSTEMI. Plan: She had slight rise in her troponin, was seen by Cardiology yesterday. She has been on appropriate medical management of her non ST elevation myocardial infarction. Discussed at the bedside this morning with Dr. Mccollum of Cardiology, she has EKG changes concerning for proximal LAD stenosis. He recommends intervention once her pulmonary status is improved. (4) Acute kidney injury Acute N17.9 - ACUTE KIDNEY FAILURE, UNSPECIFIED Comment/Plan: Baseline Cr is 0.57. Admission Cr is 1.5. Likely due to dehydration. Plan: Given copious IV fluids, renal function today is normal, IV fluids will be cut back to avoid fluid overload. (5) Acute respiratory failure Acute J96.00 - ACUTE RESPIRATORY FAILURE, UNSP W HYPOXIA OR HYPERCAPNIA Qualifiers: Respiratory failure complication: hypoxia Qualified Code(s): J96.01 - Acute respiratory failure with hypoxia (6) Bacterial pneumonia Acute J15.9 - UNSPECIFIED BACTERIAL PNEUMONIA Comment/Plan: Pneumonia. Severe. Requiring continuous oxygen support. Type: Community acquired pneumonia. Criteria for diagnosis: Chest x-ray suggestive of pneumonia, rhonchi on physical exam. Likely bacterial. Plan: Admit to ICU due to severity. Sputum culture has been ordered. Treat with IV ceftriaxone and IV Levaquin. Monitor oxygen saturation levels. (7) COPD exacerbation Acute J44.1 - CHRONIC OBSTRUCTIVE PULMONARY DISEASE W (ACUTE) EXACERBATION Comment/Plan: COPD exacerbation, severe. Plan: Nebs of Duoneb q 6 hours scheduled and albuterol q 2 hours prn. Sputum culture ordered. IV ceftriaxone and IV Levaquin. IV methylprednisolone. Continuous oxygen support. Keep sats below 95% due to COPD. (8) Hypokalemia Acute E87.6 - HYPOKALEMIA Comment/Plan: Replace potassium with KCl. Check magnesium level and replace as needed. (9) NSTEMI (non-ST elevated myocardial infarction) Acute I21.4 - NON-ST ELEVATION (NSTEMI) MYOCARDIAL INFARCTION Comment/Plan: As above, discussed with Dr. Mccollum. She has a high risk EKG finding consistent with LAD lesion. - Plan In summary this patient is acutely and critically ill. The patient requires treatment of vital organ failure and measures to prevent further life- threatening deterioration of the above conditions. I personally reviewed and ordered lab testing, as well as imaging. I reviewed old medical records from previous hospitalizations as available, and spent the time mentioned below in critical care of this patient including counseling and coordination of care. Case Care Discussed with: Patient, Consultants, Family Total Time: 70
[2016-10-05] MEDS: ASPIRIN 325 MG TAB PO SCH (08:36)
[2016-10-05] MEDS: LISINOPRIL 2.5 MG TAB PO SCH (10:03)
[2016-10-05] MEDS: CARVEDILOL 3.125 MG TAB PO SCH ×2 (10:03→20:49)
[2016-10-05] MEDS: RANOLAZINE 500 MG EXT RELEASE TAB PO SCH ×2 (10:04→20:52)
--- NOTE | 2016-10-05 10:22 | CAPUEKG ---
[place], [place] Test Date: 2016-10-05 Pat Name: SELVIN MORRISON Department: Room: ICU Gender: Female Oil Gauger: : Requested By: Order Number: Reading MD: Aki Mccollum MD Measurements Intervals [place] Rate: 62 P: 77 OR: 120 QRS: 69 QRSD: 90 T: 49 QT: 438 QTc: 444 Interpretive Statements Normal sinus rhythm T wave abnormality, consider anterior ischemia Abnormal ECG Electronically Signed On 10-05-16 10:21:25 EST by Aki Mccollum MD [email or web address] [id number]
[2016-10-05] MEDS: ENOXAPARIN 80 MG/0.8 ML PFS SQ SCH ×2 (10:48→23:06)
--- NOTE | 2016-10-05 12:15 | CAPUECHO ---
INDICATION: SD HEIGHT: 167.6 cm (5 ft 6.0 in) WEIGHT: 71.7 kg (158.0 lbs) BP: 104/55 BSA: 1.803766 m MEASUREMENTS 2D RVIDd: 3.0 cm LVOT Diam: 1.8 cm LA Diam: 3.2 cm EF Biplane: 59.23 % LAESV MOD A4C: 43.1 ml LAESV MOD A2C: 47.7 ml LAESV Index (A-L): 29.06 ml/m M-MODE IVSd: 1.1 cm LVIDd: 4.4 cm LVPWd: 1.1 cm LVIDs: 3.2 cm EF(Teich): 55 % Ao Diam: 2.6 cm DOPPLER MV E Ronak: 1.09 m/s MV A Ronak: 0.85 m/s MV PHT: 59.26 ms MVA By PHT: 3.71 cm LVOT Vmax: 1.09 m/s AV Vmax: 1.44 m/s SARA Vmax, Pt: 1.86 cm TR Vmax: 3.30 m/s TR maxP mmHg RVSP: 58.50 mmHg FINDINGS ------- Procedure:2D images, m-mode, color and spectral Doppler were obtained and reviewed. ECG rhythm:Sinus rhythm. Study quality:This was a technically adequate study. Left Ventricle:The left ventricular size is normal. Left ventricular wall thickness is normal. O verall left ventricular systolic function is normal with, an EF between 55 - 60 %. The diastolic f illing pattern indicates impaired relaxation. No regional wall motion abnormalities were noted. Right Ventricle:The right ventricle is moderately enlarged. The right ventricular wall thickness i s normal measuring < 5mm. The right ventricular systolic function is normal. Left Atrium:The left atrium is normal in size. Right Atrium:The right atrium is normal in size and function. Aortic Valve:Aortic valve is trileaflet and is mildly thickened. There is mild aortic valve sclero sis. There is no evidence of aortic regurgitation. There is no evidence of aortic stenosis. Mitral Valve:Normal appearing mitral valve. Mild mitral regurgitation is present. Tricuspid Valve:The tricuspid valve appears structurally normal. Mild tricuspid regurgitation pres ent. The right ventricular systolic pressure, as measured by Doppler, is 58 mmHg. Pulmonic Valve:The pulmonic valve is normal. There is no pulmonic regurgitation present. Aorta:The aortic root, ascending aorta and aortic arch appear normal. IVC:The inferior vena cava is mildly dilated. Pericardium:The pericardium is normal. There is no pericardial effusion. CONCLUSIONS 1. Overall left ventricular systolic function is normal with, an EF between 55 - 60 %. 2. No regional wall motion abnormalities were noted. Electronically Signed By: Aki Mccollum MD, FACC Electronically Signed On: 12:14:29
[2016-10-05] MEDS: ATORVASTATIN 40 MG TAB PO SCH (17:21)
[2016-10-05] MEDS: CHLORHEXIDINE (HIBICLENS) 4 OZ BOTTLE TOP SCH (20:49)
[2016-10-05] MEDS: CEFTRIAXONE 1 GM in D5W 100 ML IV SCH (20:52)
[2016-10-05] MEDS ORDERED: Levofloxacin 750 mg/150 ml D5W 750 MG/150 ML RTU IV SCH (22:00)
[2016-10-06] MEDS: NS 1,000 ML IV SCH ×2 (02:06→14:15)
[2016-10-06] MEDS: Albuterol/Ipratropium Neb 3 ML NEB NEB SCH ×4 (02:48→19:36)
[2016-10-06 04:56] LABS: MPV 8.3 fL (7.4-10.4)
[2016-10-06 05:56] LABS: BLOOD UREA NITROGEN 43 MG/DL (7-17); CALCIUM 8.5 MG/DL (8.4-10.2); CALCULATED OSMOLALITY 291 MOs/Kg (270-290); CHLORIDE 110 mEq/L (98-107); GLUCOSE 147 MG/DL (70-99); SODIUM LEVEL 144 mEq/L (137-146)
[2016-10-06] MEDS: METHYLPREDNISOLONE 125 MG/2 ML VIAL IV SCH ×3 (06:00→23:08)
[2016-10-06] MEDS: RANOLAZINE 500 MG EXT RELEASE TAB PO SCH ×2 (09:27→21:30)
[2016-10-06] MEDS: ASPIRIN 325 MG TAB PO SCH (09:27)
[2016-10-06] MEDS: LISINOPRIL 2.5 MG TAB PO SCH (09:28)
[2016-10-06] MEDS: CARVEDILOL 3.125 MG TAB PO SCH ×2 (09:28→21:30)
--- NOTE | 2016-10-06 10:10 | GENMEDPROG ---
Chief Complaint: NSTEMI, PNEUMONIA, SEPSIS, CAD, ACUTE RESP FAILURE, HYPOTENSION Subjective Note: Patient is oxygenating better today, but still wheezing & coughing. Wants to eat. Notes Reviewed: Yes Events from last night noted and discussed with Clinical Staff Current Medication List: Reviewed Currently: Reports: Cough, Wheezing, PAYAN, SOB. Denies: Chest Pain DVT Prophylaxis: Yes - Physical Examination Vital Signs and I&O: Last Vital Signs Temp 97.7 F 10/06/16 07:00 Pulse 85 10/06/16 09:00 Resp 25 H 10/06/16 07:00 BP 114/71 10/06/16 09:00 Pulse Ox 92 10/06/16 09:00 Oxygen Pulse Oxygen Saturation 92 O2 Device Nasal Cannula Oxygen Flow Rate 5 Fraction of Inspired Oxygen ( 92 FIO2) Intake & Output 10/03/16 10/04/16 10/05/16 10/06/16 23:59 23:59 23:59 23:59 Intake Total 615 4083 3136 618 Output Total 50 600 850 300 Balance 565 3483 2286 318 Patient's weight 67.495 kg 67.495 kg 72.03 kg 73.346 kg General: Alert, Oriented x3, Cooperative, Mild distress, Weakness HEENT: Normal, PERRLA, EOMI, Anicteric Sclera, Mucous membr. moist/pink Neck: Non-tender, Full range of motion, Normal Trachea alignment, Normal inspection, No Masses palpable Lymphatics: Normal Respiratory: Diminished, Rales, Tachypnea, Wheezes (Diffusely) Cardiovascular: Regular rate and rhythm, Normal S1, Normal S2, Good Pedal Pulses. negative: LE Edema GI: Normal bowel sounds, Soft, Non tender Extremities/Musculoskeletal: Normal pulses, FROM. negative: Edema, Clubbing, Cyanosis Skin: Warm,Dry and Intact Neurological: Normal speech, Strength at 5/5 X4 ext, Normal tone, Cranial nerves 3-12 NL Psych/Mental Status: Appropriate, Normal Affect, Cooperative Lab/DI/Studies Reviewed: Selected Entries 10/05/12 20:08 Blood Glucose 171 Result Laboratory Tests 10/06/16 10/06/16 04:42 04:42 WBC 19.3 H Hgb 12.5 Hct 38.2 Plt Count 262 Sodium 144 Potassium 4.4 Chloride 110 H Carbon Dioxide 26 Anion Gap 12 BUN 43 H Creatinine 0.80 Estimated GFR (MDRD) > 60 Glucose 147 H Calculated Osmolality 291 H Calcium 8.5 - Assessment (1) Sepsis Acute A41.9 - SEPSIS, UNSPECIFIED ORGANISM Qualifiers: Sepsis type: sepsis due to unspecified organism Qualified Code(s): A41.9 - Sepsis, unspecified organism Comment/Plan: Early sepsis. Present on admission. Continues to have leukocytosis of 19.3 K and tachypnea of 25 breaths per min in addition to pneumonia on CXR. Remains on IV Rocephin and Zithromax D#4. Has received adequate fluid resuscitation. BP improved although still low. Continue sepsis monitoring. (2) NSTEMI (non-ST elevated myocardial infarction) Acute I21.4 - NON-ST ELEVATION (NSTEMI) MYOCARDIAL INFARCTION Comment/Plan: Demand ischemia from hypoxia due to her pneumonia and chronic COPD/hypoxia, discussed with . She has a high risk EKG finding consistent with LAD lesion. Anticipate need for cardiac cath after treatment for pneumonia. (3) Bacterial pneumonia Acute J15.9 - UNSPECIFIED BACTERIAL PNEUMONIA Comment/Plan: Pneumonia. Severe. Requiring continuous oxygen support. Criteria for diagnosis: Chest x-ray suggestive of pneumonia, rhonchi on physical exam. Likely bacterial. Continue IV ceftriaxone and IV Levaquin. Monitor oxygen saturation levels. (4) Acute and chronic respiratory failure with hypoxia Acute J96.21 - ACUTE AND CHRONIC RESPIRATORY FAILURE WITH HYPOXIA Comment/ Plan: Wears 2L NC at home, but only at night.Initiallly required BiPAP on arrival. Severe respiratory distress with peripheral O2 sat of only 60 when she arrived in the emergency department. Currently has been weaned to NC at 4.5 L/min, still on neb tx,but not calling for PRN treatment as she should. Still wheezing quite a bit. (5) COPD exacerbation Acute J44.1 - CHRONIC OBSTRUCTIVE PULMONARY DISEASE W (ACUTE) EXACERBATION Comment/Plan: COPD exacerbation, severe. Remains on IV Solumedrol 60 mg q 8 hr, unable to wean from this just yet. Nebs of Duoneb q 6 hours scheduled and albuterol q 2 hours prn. Sputum culture ordered. Continue IV ceftriaxone and IV Levaquin. Continuous oxygen support. Keep sats below 95% due to COPD. (6) Hypotension (arterial) Acute I95.9 - HYPOTENSION, UNSPECIFIED Qualifiers: Hypotension type: unspecified hypotension type Qualified Code(s): I95.9 - Hypotension, unspecified Comment/Plan: Has improved. Continue to follow. (7) Elevated brain natriuretic peptide (BNP) level Acute R79.89 - OTHER SPECIFIED ABNORMAL FINDINGS OF BLOOD CHEMISTRY Comment/ Plan: Elelvated BNP of 9050 on admission. Patient denies history of CHF; she denies recent lower extremity edema or weight gain. Probably has element of diastolic CHF. Patient is at risk for volume overload due to need for IVF for sepsis. Monitor lung exam. (8) Tobacco abuse Acute Z72.0 - TOBACCO USE Comment/Plan: Counseled to quit. Case Care Discussed with: Patient, Consultants, Family, Nursing Staff Education/Counseling Given To: Patient, Family Member Total Time: 30 min Critical Care: Yes Couseling Time (>50% in counseling/coordination): Yes Code: 291
--- NOTE | 2016-10-06 10:16 | PCM.CARD ---
- Subjective Reason for visit: Follow up abnormal troponin and electrocardiogram Denies have any cardiac complain overall she said she feels significantly better. Still coughing a lot. Vital Signs: Last Vital Signs Temp 97.7 F 10/06/16 07:00 Pulse 85 10/06/16 09:00 Resp 25 H 10/06/16 07:00 BP 114/71 10/06/16 09:00 Pulse Ox 92 10/06/16 09:00 PE: General Appearance: Well developed. Well nourished. In no acute distress. Lungs: Chest was not overinflated. Bilateral rhonchi. Cardiovascular: Jugular Venous Distention: JVD not increased. Heart Rate And Rhythm: Normal. Heart Sounds: Normal. Murmurs: No murmurs were heard. Carotid Arteries: Carotid pulses were normal. No bruit in the carotid artery. Edema: Not present. Lower extremities pulses normal (including femoral popliteal and dorsalis pedis) . Musculoskeletal System: General/bilateral: No cyanosis of the fingers. Neurological: Oriented to time, place, and person. Nails: No clubbing of the fingernails. Lab/DI Results Reviewed: Laboratory Results - last 24 hr 10/06/16 10/06/16 04:42 04:42 WBC 19.3 H RBC 4.33 Hgb 12.5 Hct 38.2 MCV 88 MCH 28.8 MCHC 32.7 L RDW 13.9 Plt Count 262 MPV 8.3 Sodium 144 Potassium 4.4 Chloride 110 H Carbon Dioxide 26 Anion Gap 12 BUN 43 H Creatinine 0.80 Estimated GFR (MDRD) > 60 Glucose 147 H Calculated Osmolality 291 H Calcium 8.5 - Plan I cannot axis assessment and plan. Therefore I will dictate this plan rate here. 1. Abnormal troponin I. Clinical presentations fairly typical for acute coronary syndrome type 2 however patient developed quite significant EKG changes suggesting proximal LAD disease. She is on appropriate medication hemodynamically stable at the moment. I will continue present management. She will required cardiac catheterization to clarify the diagnosis. First she needs to get better from respiratory point of view. She is on aspirin Lovenox beta-ashok PARKER-inhibitor statin. 2. Pneumonia: Management as per primary care physician. Quite significant improvement since yesterday. But overall coughing a lot still white blood cell count still quite elevated. Will continue antibiotics and oxygen support. 3. Dyslipidemia: Continue with statin.
[2016-10-06] MEDS: ENOXAPARIN 80 MG/0.8 ML PFS SQ SCH ×2 (12:34→23:09)
[2016-10-06] MEDS: ATORVASTATIN 40 MG TAB PO SCH (16:58)
[2016-10-06] MEDS: CEFTRIAXONE 1 GM in D5W 100 ML IV SCH (21:30)
[2016-10-06] MEDS: CHLORHEXIDINE (HIBICLENS) 4 OZ BOTTLE TOP SCH (21:41)
[2016-10-06] MEDS ORDERED: Levofloxacin 750 mg/150 ml D5W 750 MG/150 ML RTU IV SCH (22:00)
[2016-10-07] MEDS: Albuterol/Ipratropium Neb 3 ML NEB NEB SCH ×4 (01:40→20:39)
[2016-10-07] MEDS: NS 1,000 ML IV SCH ×3 (05:56→21:44)
[2016-10-07] MEDS: METHYLPREDNISOLONE 125 MG/2 ML VIAL IV SCH (05:56)
[2016-10-07 06:07] LABS: MPV 8.5 fL (7.4-10.4)
[2016-10-07 06:40] LABS: BLOOD UREA NITROGEN 31 MG/DL (7-17); CALCIUM 8.4 MG/DL (8.4-10.2); CALCULATED OSMOLALITY 280 MOs/Kg (270-290); CHLORIDE 105 mEq/L (98-107); GLUCOSE 132 MG/DL (70-99); SODIUM LEVEL 141 mEq/L (137-146)
[2016-10-07 06:49] VITALS: BMI 26.6
[2016-10-07] MEDS: ASPIRIN 325 MG TAB PO SCH (08:36)
[2016-10-07] MEDS: CARVEDILOL 3.125 MG TAB PO SCH ×2 (08:37→21:54)
[2016-10-07] MEDS: RANOLAZINE 500 MG EXT RELEASE TAB PO SCH ×2 (08:37→21:54)
[2016-10-07] MEDS: LISINOPRIL 2.5 MG TAB PO SCH (08:45)
--- NOTE | 2016-10-07 09:22 | PCM.CARD ---
- Subjective Reason for visit: Follow up abnormal EKG, abnormal troponin I. Significantly improved less shortness of breath less coughing. No chest pain. Vital Signs: Last Vital Signs Temp 97.6 F 10/07/16 07:00 Pulse 83 10/07/16 08:50 Resp 24 10/07/16 08:00 BP 127/72 10/07/16 08:00 Pulse Ox 92 10/07/16 08:00 PE: General Appearance: Well developed. Well nourished. In no acute distress. Lungs: Chest was not overinflated. Clear to auscultation. Few wheezes. Cardiovascular: Jugular Venous Distention: JVD not increased. Heart Rate And Rhythm: Normal. Heart Sounds: Normal. Murmurs: No murmurs were heard. Carotid Arteries: Carotid pulses were normal. No bruit in the carotid artery. Edema: Not present. Lower extremities pulses normal (including femoral popliteal and dorsalis pedis) . Musculoskeletal System: General/bilateral: No cyanosis of the fingers. Neurological: Oriented to time, place, and person. Nails: No clubbing of the fingernails. Lab/DI Results Reviewed: Laboratory Results - last 24 hr 10/07/16 10/07/16 05:40 05:40 WBC 17.0 H RBC 4.40 Hgb 12.5 Hct 39.1 MCV 89 MCH 28.5 MCHC 32.0 L RDW 14.3 Plt Count 261 MPV 8.5 Sodium 141 Potassium 4.5 Chloride 105 Carbon Dioxide 28 Anion Gap 13 BUN 31 H Creatinine 0.80 Estimated GFR (MDRD) > 60 Glucose 132 H Calculated Osmolality 280 Calcium 8.4 - Assessment/Plan (1) Acute coronary syndrome Acute I24.9 - ACUTE ISCHEMIC HEART DISEASE, UNSPECIFIED Present on Admission: Yes Comment/Plan: Lady is asymptomatic right now. She did have minimal elevation of troponin I with initially will repeat thinking was related to acute coronary syndrome type 2 however considering significant EKG changes she may have obstructive coronary artery disease. Electrocardiogram suggest proximal LAD. She is on medical therapy right now she is on aspirin Lovenox beta-ashok PARKER-inhibitor statin which I will continue. Will wait for pulmonary status to improve before proceeding with cardiac catheterization to clarify diagnosis. (2) Bacterial pneumonia Acute J15.9 - UNSPECIFIED BACTERIAL PNEUMONIA Present on Admission: Yes Comment/Plan: Treated with antibiotic. Improved quite significantly. (3) COPD exacerbation Acute J44.1 - CHRONIC OBSTRUCTIVE PULMONARY DISEASE W (ACUTE) EXACERBATION Present on Admission: Yes Comment/Plan: Slow but improvement. - Plan Lady with minimal elevation of troponin I, very abnormal EKG. She will required cardiac catheterization. Waiting for pulmonary status to improve before proceeding with cardiac catheterization.
[2016-10-07] MEDS: ENOXAPARIN 80 MG/0.8 ML PFS SQ SCH ×2 (11:29→21:58)
--- NOTE | 2016-10-07 11:54 | GENMEDPROG ---
Chief Complaint: SEPSIS, NSTEMI, PNEUMONIA,CAD, RESP INSUFF Currently: Reports: Cough, Wheezing, PAYAN, SOB. Denies: Chest Pain DVT Prophylaxis: Yes - Physical Examination Vital Signs and I&O: Last Vital Signs Temp 97.6 F 10/07/16 10:00 Pulse 72 10/07/16 11:00 Resp 18 10/07/16 10:00 BP 136/71 10/07/16 11:00 Pulse Ox 97 10/07/16 11:00 Oxygen Pulse Oxygen Saturation 97 O2 Device Nasal Cannula Oxygen Flow Rate 3 Fraction of Inspired Oxygen ( 45 FIO2) Intake & Output 10/04/16 10/05/16 10/06/16 10/07/16 23:59 23:59 23:59 23:59 Intake Total 4083 3136 2089 1284 Output Total 919 884 3362 875 Balance 3483 2286 914 409 Patient's weight 67.495 kg 72.03 kg 73.346 kg 74.707 kg General: Alert, Oriented x3, Cooperative, Mild distress, Weakness HEENT: Normal, PERRLA, EOMI, Anicteric Sclera, Mucous membr. moist/pink Neck: Non-tender, Full range of motion, Normal Trachea alignment, Normal inspection, No Masses palpable Lymphatics: Normal Respiratory: Diminished, Rales, Tachypnea, Wheezes (Diffusely) Cardiovascular: Regular rate and rhythm, Normal S1, Normal S2, Good Pedal Pulses. negative: LE Edema GI: Normal bowel sounds, Soft, Non tender Extremities/Musculoskeletal: Normal pulses, FROM. negative: Edema, Clubbing, Cyanosis Skin: Warm,Dry and Intact Neurological: Normal speech, Strength at 5/5 X4 ext, Normal tone, Cranial nerves 3-12 NL Psych/Mental Status: Appropriate, Normal Affect, Cooperative Lab/DI/Studies Reviewed: Laboratory Tests 10/07/16 10/07/16 05:40 05:40 WBC 17.0 H Hgb 12.5 Hct 39.1 Plt Count 261 Sodium 141 Potassium 4.5 Chloride 105 Carbon Dioxide 28 Anion Gap 13 BUN 31 H Creatinine 0.80 Estimated GFR (MDRD) > 60 Glucose 132 H Calculated Osmolality 280 Calcium 8.4 - Assessment (1) Sepsis Acute A41.9 - SEPSIS, UNSPECIFIED ORGANISM Qualifiers: Sepsis type: sepsis due to unspecified organism Qualified Code(s): A41.9 - Sepsis, unspecified organism Comment/Plan: Early sepsis. Present on admission. Continues to have leukocytosis of 17.0 K but no longer tachypneic. Continues to have pneumonia on CXR. Remains on IV Rocephin and Zithromax D#4. Has received adequate fluid resuscitation. BP improved. (2) NSTEMI (non-ST elevated myocardial infarction) Acute I21.4 - NON-ST ELEVATION (NSTEMI) MYOCARDIAL INFARCTION Comment/Plan: Demand ischemia from hypoxia due to her pneumonia and chronic COPD/hypoxia, discussed with . She has a high risk EKG finding consistent with LAD lesion. Anticipate need for cardiac cath after treatment for pneumonia. (3) Bacterial pneumonia Acute J15.9 - UNSPECIFIED BACTERIAL PNEUMONIA Comment/Plan: Pneumonia. Severe. Requiring continuous oxygen support. Criteria for diagnosis: Chest x-ray suggestive of pneumonia, rhonchi on physical exam. Likely bacterial. Continue IV ceftriaxone and IV Levaquin. Monitor oxygen saturation levels. (4) Acute and chronic respiratory failure with hypoxia Acute J96.21 - ACUTE AND CHRONIC RESPIRATORY FAILURE WITH HYPOXIA Comment/ Plan: Wears 2L NC at home, but only at night.Initiallly required BiPAP on arrival. Severe respiratory distress with peripheral O2 sat of only 60 when she arrived in the emergency department. Currently has been weaned to NC at 4.5 L/min, still on neb tx,but not calling for PRN treatment as she should. Still wheezing quite a bit. (5) COPD exacerbation Acute J44.1 - CHRONIC OBSTRUCTIVE PULMONARY DISEASE W (ACUTE) EXACERBATION Comment/Plan: COPD exacerbation, severe. Remains on IV Solumedrol 60 mg q 8 hr, unable to wean from this just yet. Nebs of Duoneb q 6 hours scheduled and albuterol q 2 hours prn. Sputum culture ordered. Continue IV ceftriaxone and IV Levaquin. Continuous oxygen support. Keep sats below 95% due to COPD. (6) Hypotension (arterial) Acute I95.9 - HYPOTENSION, UNSPECIFIED Qualifiers: Hypotension type: unspecified hypotension type Qualified Code(s): I95.9 - Hypotension, unspecified Comment/Plan: Has improved. Continue to follow. (7) Elevated brain natriuretic peptide (BNP) level Acute R79.89 - OTHER SPECIFIED ABNORMAL FINDINGS OF BLOOD CHEMISTRY Comment/ Plan: Elelvated BNP of 9050 on admission. Patient denies history of CHF; she denies recent lower extremity edema or weight gain. Probably has element of diastolic CHF. Patient is at risk for volume overload due to need for IVF for sepsis. Monitor lung exam. (8) Tobacco abuse Acute Z72.0 - TOBACCO USE Comment/Plan: Counseled to quit.
[2016-10-07] MEDS: METHYLPREDNISOLONE 40 MG/1 ML VIAL IV SCH ×2 (14:24→21:54)
[2016-10-07] MEDS: ATORVASTATIN 40 MG TAB PO SCH (17:20)
[2016-10-07] MEDS: CEFTRIAXONE 1 GM in D5W 100 ML IV SCH (21:54)
[2016-10-07] MEDS: CHLORHEXIDINE (HIBICLENS) 4 OZ BOTTLE TOP SCH (22:00)
[2016-10-08] MEDS: Albuterol/Ipratropium Neb 3 ML NEB NEB SCH ×4 (02:10→21:00)
[2016-10-08] MEDS: METHYLPREDNISOLONE 40 MG/1 ML VIAL IV SCH ×3 (05:05→21:58)
[2016-10-08 06:05] LABS: BLOOD UREA NITROGEN 24 MG/DL (7-17); CALCIUM 8.3 MG/DL (8.4-10.2); CALCULATED OSMOLALITY 275 MOs/Kg (270-290); CHLORIDE 103 mEq/L (98-107); GLUCOSE 126 MG/DL (70-99); SODIUM LEVEL 140 mEq/L (137-146)
[2016-10-08 06:06] LABS: MPV 8.9 fL (7.4-10.4)
[2016-10-08] MEDS: NS 1,000 ML IV SCH (08:16)
[2016-10-08] MEDS: RANOLAZINE 500 MG EXT RELEASE TAB PO SCH ×2 (08:17→21:58)
[2016-10-08] MEDS: CARVEDILOL 3.125 MG TAB PO SCH ×2 (08:18→21:58)
[2016-10-08] MEDS: LISINOPRIL 2.5 MG TAB PO SCH (08:18)
[2016-10-08] MEDS: ASPIRIN 325 MG TAB PO SCH (08:19)
--- NOTE | 2016-10-08 09:26 | PCM.CARD ---
- Subjective Reason for visit: f/u acute NSTEMI/ Pneumonia/ COPD exacerbation Subj: Pt states still some SOB, close to baseline. [place] OOB on nasal O2. Denies chest discomfort, nausea, palpitations, lightheadedness. Vital Signs: Last Vital Signs Temp 97.9 F 10/08/16 07:00 Pulse 87 10/08/16 08:00 Resp 20 10/08/16 06:00 BP 119/56 L 10/08/16 08:00 Pulse Ox 93 10/08/16 08:00 Intake & Output 10/05/16 10/06/16 10/07/16 10/08/16 23:59 23:59 23:59 23:59 Intake Total 3136 2089 3214 2277 Output Total 850 1175 1525 1050 Balance 2286 914 1689 1227 Patient's weight 72.03 kg 73.346 kg 74.707 kg 74.707 kg PE: Physical Exam GEN: age appropriate WF in NAD, sitting up, eating VS as above, modest diuresis established VS: as above HEENT: no gross JVD seated uptright CHEST: scattered wheezes, mild exp prolongation, no rales. COR: RR, normal s1, s2 Gr 1/6 VINI, no s3. ABD: soft, non-tender, no distention EXTREM: no gross edema SKIN: warm, dry NEURO: alert, normal speech no focal motor deficit or tremor Lab/DI Results Reviewed: Laboratory Tests 10/03/16 10/03/16 10/04/16 20:10 23:15 07:30 WBC Hgb Hct Plt Count Sodium Potassium Chloride Carbon Dioxide BUN Creatinine Estimated GFR (MDRD) Troponin I 0.58 H* 0.64 H* 0.25 10/04/16 10/06/16 10/08/16 10:04 04:42 05:04 WBC 17.0 H Hgb 12.8 Hct 40.1 Plt Count 270 Sodium 144 Potassium 4.4 Chloride 110 H Carbon Dioxide 26 BUN 43 H Creatinine 0.80 Estimated GFR (MDRD) > 60 Troponin I 0.19 EKG: NSR. Essentially normal tracing. No ST shifts. T waves concordant with QRS anteriorly. tele: NSR, no V Tach IMPRESSION: acute NSTEMI is stable, no ischemic symptoms exacerbation fo COPD/pneumonitis is improving. ? diastolic CHF component. - Plan PLAN: check BNP, diuresis if BNP elevated. - will need heart cath at some point, ? timing - continue rx for COPD, incl antibiotics, intensified bronchodilator therapy
--- NOTE | 2016-10-08 09:42 | GENMEDPROG ---
Chief Complaint: sepsis, pneumonia, NSTEMI, respiratory failure, COPD exacerb Subjective Note: Patient is still hoarse, coughing, but states less wheezing, feels stronger. Currently: Reports: Cough, Wheezing, PAYAN, SOB. Denies: Chest Pain, Ambulating ( sits up in chair at bedside) DVT Prophylaxis: Yes - Physical Examination Vital Signs and I&O: Last Vital Signs Temp 97.9 F 10/08/16 07:00 Pulse 87 10/08/16 08:00 Resp 20 10/08/16 06:00 BP 119/56 L 10/08/16 08:00 Pulse Ox 93 10/08/16 08:00 Oxygen Pulse Oxygen Saturation 93 O2 Device Nasal Cannula Oxygen Flow Rate 3 Fraction of Inspired Oxygen ( 45 FIO2) Intake & Output 10/05/16 10/06/16 10/07/16 10/08/16 23:59 23:59 23:59 23:59 Intake Total 3136 2089 3214 717 Output Total 850 1175 1525 400 Balance 2286 914 1689 317 Patient's weight 72.03 kg 73.346 kg 74.707 kg 74.707 kg General: Alert, Oriented x3, Cooperative, Mild distress, Weakness HEENT: Normal, PERRLA, EOMI, Anicteric Sclera, Mucous membr. moist/pink Neck: Non-tender, Full range of motion, Normal Trachea alignment, Normal inspection, No Masses palpable Lymphatics: Normal Respiratory: Diminished, Rales, Tachypnea, Wheezes (Diffusely) Cardiovascular: Regular rate and rhythm, Normal S1, Normal S2, Good Pedal Pulses. negative: LE Edema GI: Normal bowel sounds, Soft, Non tender Extremities/Musculoskeletal: Normal pulses, FROM. negative: Edema, Clubbing, Cyanosis Skin: Warm,Dry and Intact Neurological: Normal speech, Strength at 5/5 X4 ext, Normal tone, Cranial nerves 3-12 NL Psych/Mental Status: Appropriate, Normal Affect, Cooperative Lab/DI/Studies Reviewed: Laboratory Tests 10/07/16 10/07/16 10/08/16 05:40 05:40 05:04 WBC 17.0 H Hgb 12.5 Hct 39.1 Plt Count 261 Sodium 141 140 Potassium 4.5 4.3 Chloride 105 103 Carbon Dioxide 28 30 Anion Gap 13 11 BUN 31 H 24 H Creatinine 0.80 0.70 Estimated GFR (MDRD) > 60 > 60 Glucose 132 H 126 H Calculated Osmolality 280 275 Calcium 8.4 8.3 L 10/08/16 05:04 WBC 17.0 H Hgb 12.8 Hct 40.1 Plt Count 270 Sodium Potassium Chloride Carbon Dioxide Anion Gap BUN Creatinine Estimated GFR (MDRD) Glucose Calculated Osmolality Calcium - Assessment (1) Sepsis Acute A41.9 - SEPSIS, UNSPECIFIED ORGANISM Qualifiers: Sepsis type: sepsis due to unspecified organism Qualified Code(s): A41.9 - Sepsis, unspecified organism Comment/Plan: Early sepsis. Present on admission. Continues to have leukocytosis of 17.0 K but no longer tachypneic. Continues to have pneumonia on CXR. Remains on IV Rocephin D#6. Has received adequate fluid resuscitation. BP improved. (2) NSTEMI (non-ST elevated myocardial infarction) Acute I21.4 - NON-ST ELEVATION (NSTEMI) MYOCARDIAL INFARCTION Comment/Plan: Demand ischemia from hypoxia due to her pneumonia and chronic COPD/hypoxia, discussed with . She has a high risk EKG finding consistent with LAD lesion. Anticipate need for cardiac cath after treatment for pneumonia. (3) Bacterial pneumonia Acute J15.9 - UNSPECIFIED BACTERIAL PNEUMONIA Comment/Plan: Pneumonia. Severe. Requiring continuous oxygen support. Criteria for diagnosis: Chest x-ray suggestive of pneumonia, rhonchi on physical exam. Likely bacterial. Blood cultures negative, sputum culture not obtained. Continue IV ceftriaxone. Other antibiotics discontinued. Monitor oxygen saturation levels. (4) Acute and chronic respiratory failure with hypoxia Acute J96.21 - ACUTE AND CHRONIC RESPIRATORY FAILURE WITH HYPOXIA Comment/ Plan: Wears 2L NC at home, but only at night.Initiallly required BiPAP on arrival. Severe respiratory distress with peripheral O2 sat of only 60 when she arrived in the emergency department. Currently has been weaned to NC at 4.0 L/min, still on neb tx,but not calling for PRN treatments. Still wheezing but not as much as previously. (5) COPD exacerbation Acute J44.1 - CHRONIC OBSTRUCTIVE PULMONARY DISEASE W (ACUTE) EXACERBATION Comment/Plan: COPD exacerbation, severe. Remains on IV Solumedrol 60 mg q 8 hr, unable to wean from this just yet. Nebs of Duoneb q 6 hours scheduled and albuterol q 2 hours prn. Blood cultures negative. Sputum culture not obtained. Continue IV ceftriaxone. Continuous oxygen support. Keep sats below 95% due to COPD. (6) Hypotension (arterial) Acute I95.9 - HYPOTENSION, UNSPECIFIED Qualifiers: Hypotension type: unspecified hypotension type Qualified Code(s): I95.9 - Hypotension, unspecified Comment/Plan: Has improved. Continue to follow. (7) Elevated brain natriuretic peptide (BNP) level Acute R79.89 - OTHER SPECIFIED ABNORMAL FINDINGS OF BLOOD CHEMISTRY Comment/ Plan: Elelvated BNP of 9050 on admission. Patient denies history of CHF; she denies recent lower extremity edema or weight gain. Probably has element of diastolic CHF. Patient is at risk for volume overload due to need for IVF for sepsis. Monitor lung exam. (8) Tobacco abuse Acute Z72.0 - TOBACCO USE Comment/Plan: Counseled to quit. Case Care Discussed with: Patient, Nursing Staff Education/Counseling Given To: Patient Education/Counseling Given Regarding: Diagnosis, Treatment, Prognosis Total Time: 25 min Critical Care: No Couseling Time (>50% in counseling/coordination): Yes Code: 34375 (12+)
[2016-10-08 10:06] VITALS: TEMP 97.9
[2016-10-08] MEDS: ENOXAPARIN 80 MG/0.8 ML PFS SQ SCH ×2 (11:30→22:01)
[2016-10-08] MEDS: ATORVASTATIN 40 MG TAB PO SCH (17:13)
[2016-10-08] MEDS: CHLORHEXIDINE (HIBICLENS) 4 OZ BOTTLE TOP SCH (20:02)
[2016-10-08] MEDS: CEFTRIAXONE 1 GM in D5W 100 ML IV SCH (21:58)
[2016-10-09] MEDS: NS 1,000 ML IV SCH ×3 (00:15→15:39)
[2016-10-09] MEDS: Albuterol/Ipratropium Neb 3 ML NEB NEB SCH ×5 (02:02→23:58)
[2016-10-09] MEDS: METHYLPREDNISOLONE 40 MG/1 ML VIAL IV SCH ×3 (04:59→21:08)
[2016-10-09 05:51] LABS: MPV 8.3 fL (7.4-10.4)
[2016-10-09 06:07] LABS: BLOOD UREA NITROGEN 24 MG/DL (7-17); CALCIUM 8.1 MG/DL (8.4-10.2); CALCULATED OSMOLALITY 274 MOs/Kg (270-290); CHLORIDE 102 mEq/L (98-107); GLUCOSE 115 MG/DL (70-99); SODIUM LEVEL 140 mEq/L (137-146)
[2016-10-09] MEDS: RANOLAZINE 500 MG EXT RELEASE TAB PO SCH ×2 (07:51→21:04)
[2016-10-09] MEDS: LISINOPRIL 2.5 MG TAB PO SCH (07:51)
[2016-10-09] MEDS: CARVEDILOL 3.125 MG TAB PO SCH ×2 (07:51→21:03)
[2016-10-09] MEDS: ASPIRIN 325 MG TAB PO SCH (07:51)
[2016-10-09] MEDS: ENOXAPARIN 80 MG/0.8 ML PFS SQ SCH (11:57)
--- NOTE | 2016-10-09 13:51 | GENMEDPROG ---
Currently: Reports: PAYAN. Denies: Chest Pain, Ambulating (sits up in chair at bedside) DVT Prophylaxis: Yes - Physical Examination Vital Signs and I&O: Last Vital Signs Temp 98.1 F 10/09/16 11:00 Pulse 80 10/09/16 13:00 Resp 26 H 10/09/16 07:00 BP 111/58 L 10/09/16 13:00 Pulse Ox 93 10/09/16 13:00 Oxygen Pulse Oxygen Saturation 93 O2 Device Nasal Cannula Oxygen Flow Rate 2 Fraction of Inspired Oxygen ( 45 FIO2) Intake & Output 10/06/16 10/07/16 10/08/16 10/09/16 23:59 23:59 23:59 23:59 Intake Total 2089 3214 2722 1440 Output Total 1175 1525 1050 750 Balance 914 2239 1712 690 Patient's weight 73.346 kg 74.707 kg 74.707 kg 74.707 kg General: Alert, Oriented x3, Cooperative, Mild distress, Weakness HEENT: Normal, PERRLA, EOMI, Anicteric Sclera, Mucous membr. moist/pink Neck: Non-tender, Full range of motion, Normal Trachea alignment, Normal inspection, No Masses palpable Lymphatics: Normal Respiratory: Normal - CTA, Diminished, Tachypnea Cardiovascular: Regular rate and rhythm, Normal S1, Normal S2, Good Pedal Pulses. negative: LE Edema GI: Normal bowel sounds, Soft, Non tender Extremities/Musculoskeletal: Normal pulses, FROM. negative: Edema, Clubbing, Cyanosis Skin: Warm,Dry and Intact Neurological: Normal speech, Strength at 5/5 X4 ext, Normal tone, Cranial nerves 3-12 NL Psych/Mental Status: Appropriate, Normal Affect, Cooperative, Anxious - Assessment (1) Sepsis Acute A41.9 - SEPSIS, UNSPECIFIED ORGANISM Qualifiers: Sepsis type: sepsis due to unspecified organism Qualified Code(s): A41.9 - Sepsis, unspecified organism Comment/Plan: Present on admission. Continues to have leukocytosis of 17.0 K but may be due to steroids. Continues to have pneumonia on CXR. Remains on IV Rocephin D#7. Has received adequate fluid resuscitation. BP improved. (2) NSTEMI (non-ST elevated myocardial infarction) Acute I21.4 - NON-ST ELEVATION (NSTEMI) MYOCARDIAL INFARCTION Comment/Plan: Demand ischemia from hypoxia due to her pneumonia and chronic COPD/hypoxia, discussed with . She has a high risk EKG finding consistent with LAD lesion. Anticipate need for cardiac cath after treatment for pneumonia. (3) Bacterial pneumonia Acute J15.9 - UNSPECIFIED BACTERIAL PNEUMONIA Comment/Plan: Pneumonia. Severe. Requiring continuous oxygen support. Chest x-ray suggestive of pneumonia, rhonchi on physical exam. Likely bacterial. Blood cultures negative, sputum culture not obtained. Continue IV ceftriaxone. Other antibiotics discontinued. Monitor oxygen saturation levels. (4) Acute and chronic respiratory failure with hypoxia Acute J96.21 - ACUTE AND CHRONIC RESPIRATORY FAILURE WITH HYPOXIA Comment/ Plan: Wears 2L NC at home, but only at night. Initiallly required BiPAP on arrival. Severe respiratory distress with peripheral O2 sat of only 60 when she arrived in the emergency department. Currently has been weaned to NC at 2.0 L/min, still on neb tx,but not calling for PRN treatments. Still wheezing but improved significantly. (5) COPD exacerbation Acute J44.1 - CHRONIC OBSTRUCTIVE PULMONARY DISEASE W (ACUTE) EXACERBATION Comment/Plan: COPD exacerbation, severe. Remains on IV Solumedrol 60 mg q 8 hr, unable to wean from this just yet. Nebs of Duoneb q 6 hours scheduled and albuterol q 2 hours prn. Blood cultures negative. Sputum culture not obtained. Continue IV ceftriaxone. Continuous oxygen support. Keep sats below 95% due to COPD. (6) Hypotension (arterial) Acute I95.9 - HYPOTENSION, UNSPECIFIED Qualifiers: Hypotension type: unspecified hypotension type Qualified Code(s): I95.9 - Hypotension, unspecified Comment/Plan: Has improved. Continue to follow. (7) Elevated brain natriuretic peptide (BNP) level Acute R79.89 - OTHER SPECIFIED ABNORMAL FINDINGS OF BLOOD CHEMISTRY Comment/ Plan: Elelvated BNP of 9050 on admission. Patient denies history of CHF; she denies recent lower extremity edema or weight gain. Probably has element of diastolic CHF. Patient is at risk for volume overload due to need for IVF for sepsis. Monitor lung exam. (8) Tobacco abuse Acute Z72.0 - TOBACCO USE Comment/Plan: Counseled to quit.
--- NOTE | 2016-10-09 14:43 | PCM.CARD ---
- Subjective Reason for visit: f/u NSTEMI, PNA, decomp CHF Subj: Pt states she feels well, VERY anxious to go home. No chest pain. Breathing OK on O2. No orthopnea. Has hx COPD. Vital Signs: Last Vital Signs Temp 98.1 F 10/09/16 11:00 Pulse 80 10/09/16 13:00 Resp 26 H 10/09/16 07:00 BP 111/58 L 10/09/16 13:00 Pulse Ox 93 10/09/16 13:00 Intake & Output 10/06/16 10/07/16 10/08/16 10/09/16 23:59 23:59 23:59 23:59 Intake Total 2089 3214 2722 1962 Output Total 1175 1525 1050 1000 Balance 914 1689 1672 962 Patient's weight 73.346 kg 74.707 kg 74.707 kg 74.707 kg PE: Physical Exam GEN: age appropriate, appears well. VS: as above HEENT: no JVD CHEST: diffuse wheeze, mild exp prolongation on forced expiration. COR: RR, normal s1, s2, no s3 Gr 1/6 VINI ABD: no distention; lopez in EXTREM: no edema SKIN: warm, dry NEURO: alert, no fccal deficit. Lab/DI Results Reviewed: Laboratory Tests 10/03/16 10/04/16 10/09/16 20:10 10:04 05:25 Sodium 140 Potassium 4.2 Chloride 102 Carbon Dioxide 31 BUN 24 H Creatinine 0.70 Estimated GFR (MDRD) > 60 Troponin I 0.19 [id number]-Jsfsjzhrdxi Pept 9050 H - Plan PLAN: d/c full dose enoxaparin, start (load) clopidogrel for dual anti- platelet therapy touch with diuretic for modest compoentn of diastolic CHF (incr BNP) - anticipate discharge soon if O2 sat ok on RA, f/u Dr. Kline for consideration of likely elective cath when COPD exacerbation/ pneumonitis resolved.
[2016-10-09] MEDS ORDERED: CLOPIDOGREL 75 MG TAB PO ONE (16:11)
[2016-10-09] MEDS ORDERED: FUROSEMIDE 40 MG/4 ML VIAL IV ONE (16:12)
[2016-10-09] MEDS ORDERED: SODIUM CHLORIDE 0.9% 3 ML FLUSH FLUSH PRN (16:14)
[2016-10-09] MEDS: ATORVASTATIN 40 MG TAB PO SCH (16:23)
[2016-10-09] MEDS: SODIUM CHLORIDE 0.9% 3 ML FLUSH FLUSH SCH (16:23)
--- NOTE | 2016-10-09 16:44 | CAPUEKG ---
[place], [place] Test Date: 2016-10-08 Pat Name: SELVIN MORRISON Department: Room: ICU Gender: Female Security And Compliance Analyst: : Requested By: Order Number: Reading MD: Konstantin Canas Measurements Intervals [place] Rate: 73 P: 81 VA: 122 QRS: 67 QRSD: 86 T: 43 QT: 376 QTc: 414 Interpretive Statements Normal sinus rhythm Normal ECG Electronically Signed On 10-09-16 16:44:05 EST by Konstantin Canas <[email or web address] [id number]
[2016-10-09] MEDS ORDERED: SODIUM CHLORIDE 0.9% 3 ML FLUSH FLUSH SCH (17:00)
[2016-10-09] MEDS: CEFTRIAXONE 1 GM in D5W 100 ML IV SCH (21:05)
[2016-10-09] MEDS: CHLORHEXIDINE (HIBICLENS) 4 OZ BOTTLE TOP SCH (21:05)
[2016-10-10] MEDS: METHYLPREDNISOLONE 40 MG/1 ML VIAL IV SCH (05:13)
[2016-10-10] MEDS: SODIUM CHLORIDE 0.9% 3 ML FLUSH FLUSH SCH (05:15)
[2016-10-10 06:17] LABS: MPV 8.1 fL (7.4-10.4)
[2016-10-10 06:33] LABS: BLOOD UREA NITROGEN 26 MG/DL (7-17); CALCIUM 7.9 MG/DL (8.4-10.2); CALCULATED OSMOLALITY 271 MOs/Kg (270-290); CHLORIDE 95 mEq/L (98-107); GLUCOSE 100 MG/DL (70-99); SODIUM LEVEL 138 mEq/L (137-146)
[2016-10-10] MEDS: RANOLAZINE 500 MG EXT RELEASE TAB PO SCH (08:28)
[2016-10-10] MEDS: CARVEDILOL 3.125 MG TAB PO SCH (08:28)
[2016-10-10] MEDS: ASPIRIN 325 MG TAB PO SCH (08:28)
[2016-10-10] MEDS: LISINOPRIL 2.5 MG TAB PO SCH (08:29)
[2016-10-10] MEDS: Albuterol/Ipratropium Neb 3 ML NEB NEB SCH (08:52)
[2016-10-10] MEDS ORDERED: FUROSEMIDE 20 MG TAB PO SCH ×2 (09:00)
[2016-10-10] MEDS ORDERED: CLOPIDOGREL 75 MG TAB PO SCH (09:00)
--- NOTE | 2016-10-10 09:00 | PCM.CARD ---
- Subjective Reason for visit: f/u NSTEMI, COPD exacerbation, acute rothman CHF Subj; pt feels well, no chest discomfort, travis ambulatioin on garcia without CP. Breathing much better, back to baseline. ANxious to go home. Sats occas 89% RA, but no signif desat with ambulation, has nocturnal O2 at home. Vital Signs: Last Vital Signs Temp 98 F 10/10/16 07:00 Pulse 91 10/10/16 08:00 Resp 24 10/10/16 08:00 BP 146/68 10/10/16 08:00 Pulse Ox 91 10/10/16 08:00 PE: Physical Exam GEN: age appropriate, in NAD VS: as above HEENT: no JVD. CArotids normal CHEST: decr breath sounds, wheezing provocable COR: RR, Gr 1/6 VINI, no s3. Diastole quiet ABD: no distention EXTREM: no edema or cyanosis SKIN: warm, dry NEURO: alert, no focal deficit or tremor Lab/DI Results Reviewed: Laboratory Tests 10/03/16 10/03/16 10/09/16 20:10 23:15 05:35 Sodium 136 L Potassium 3.1 L Chloride Carbon Dioxide BUN 36 H Creatinine 1.50 H Estimated GFR (MDRD) Troponin I 0.58 H* 0.64 H* [id number]-V-Yedqpbilmbj Pept 9050 H 1360 H 10/10/16 05:50 Sodium 138 Potassium 3.9 Chloride 95 L Carbon Dioxide 36 H BUN 26 H Creatinine 0.80 Estimated GFR (MDRD) > 60 Troponin I Mni-G-Fayhzvesxro Pept EKG today: NSR. Normal tracing (biphasic T waves anteriorly only on tracing of 10/05) tele: NSR, rare PVC, no V Tach or dynamic ST-T changes. Echo 10/05: normal LV size and normal systolic function, no segmental abnl IMPRESSION: - resolving PNA/exacerbation of COPD - NSTEMI in setting of acute illness - ? Type I vs Type II - rothman CHF component appears substantially resolved. - Plan PLAN: There is agreement among all cardiologists involved that definitive coronary angiographic evaluation is indicated. Timing of this is a matter of some judgment and this is discussed with pt and daughter. There is some risk she could experience an ischemic event during the brief interval (days) that cath is deferred, vs being able to accomplish a cardiac procedure at lower risk of (particularly respiratory) complication. (She is at this point clearly not optimized for possible CABG.) They are offered transfer to for cath today prior to hosp release, but express clear acceptance of my suggestion that cath be deferred for some days to allow further improvement/ optimization of resp status before pursuing what is essentially an elective procedure. Meantime , we will manage medically for NSTEMI: anticipate discharge today, on ASA + clopidogrel; + statin + carvedilol - furosemide 20 mg po/day - prn sl NTG - f/u PCP Dr. Wren - f/u Eliud SatOct 22 at 10:00, anticipate referral for cath when pulm status more stable/optimized.
--- NOTE | 2016-10-10 09:53 | PCM.DCS92 ---
- Final/Secondary Discharge Diagnosis (1) Sepsis Acute A41.9 - SEPSIS, UNSPECIFIED ORGANISM Present on Admission: Yes sepsis due to unspecified organism A41.9 - Sepsis, unspecified organism Comment: Present on admission. Continues to have leukocytosis of 17.0 K but may be due to steroids. Continues to have pneumonia on CXR. Remains on IV Rocephin D#7. Has received adequate fluid resuscitation. BP improved. (2) NSTEMI (non-ST elevated myocardial infarction) Acute I21.4 - NON-ST ELEVATION (NSTEMI) MYOCARDIAL INFARCTION Present on Admission: Yes Comment: Demand ischemia from hypoxia due to her pneumonia and chronic COPD/ hypoxia, discussed with & again with Dr. Canas. She has a high risk EKG finding consistent with LAD lesion. Anticipate need for cardiac cath after treatment for pneumonia. (3) Bacterial pneumonia Acute J15.9 - UNSPECIFIED BACTERIAL PNEUMONIA Present on Admission: Yes Comment: Pneumonia. Severe. Requiring continuous oxygen support. Chest x-ray suggestive of pneumonia, rhonchi on physical exam. Improved significantly with treatment. Likely bacterial. Blood cultures negative, sputum culture not obtained. Completed 7 days of IV ceftriaxone. Has been able to wean off oxygen and ambulate short distance without it. (4) Acute and chronic respiratory failure with hypoxia Acute J96.21 - ACUTE AND CHRONIC RESPIRATORY FAILURE WITH HYPOXIA Present on Admission: Yes Comment: Wears 2L NC at home, but only at night. Initiallly required BiPAP on arrival. Severe respiratory distress with peripheral O2 sat of only 60 when she arrived in the emergency department. Currently has been weaned to room air, and improved significantly. (5) COPD exacerbation Acute J44.1 - CHRONIC OBSTRUCTIVE PULMONARY DISEASE W (ACUTE) EXACERBATION Present on Admission: Yes Comment: COPD exacerbation, severe. Remains on IV Solumedrol 40 mg q 8 hr, will change to PO steroids and discharge to home. Blood cultures negative. (6) Hypotension (arterial) Acute I95.9 - HYPOTENSION, UNSPECIFIED Present on Admission: Yes unspecified hypotension type I95.9 - Hypotension, unspecified Comment: Has improved. Continue to follow. (7) Elevated brain natriuretic peptide (BNP) level Acute R79.89 - OTHER SPECIFIED ABNORMAL FINDINGS OF BLOOD CHEMISTRY Present on Admission: Yes Comment: Elevated BNP of 9050 on admission. Probably has element of diastolic CHF. BNP down to 1360 now. Patient breathing is much better. (8) Tobacco abuse Acute Z72.0 - TOBACCO USE Present on Admission: Yes Comment: Strongly encouraged to stop all forms of tobacco use, complete smoking cessation. Patient is in agreement. Discharge Disposition: Discharge w/ Home Health Discharge Condition: Improved Cognitive Discharge Status: Unimpaired Fuctional Discharge Status: Independent Physician Follow up/Referrals: Adam Wren MD [Primary Care Provider] - One Week Konstantin Canas MD [Staff Physician] - One Week New Prescriptions: Albuterol/Ipratropium Neb [Duoneb] 3 ml NEB RTQ6 #120 nebu Aspirin 325 mg PO DAILYWM #30 tablet Atorvastatin Calcium [Lipitor] 40 mg PO DAILY@1800 #30 tablet Carvedilol [Coreg] 3.125 mg PO BID #60 tablet Clopidogrel Bisulfate [Plavix] 75 mg PO DAILY #30 tablet Furosemide [Lasix] 20 mg PO DAILY #30 tablet Lisinopril [Prinivil] 2.5 mg PO DAILY #30 tablet Nitroglycerin Sublingual Tab [NTG (NitroStat Sublingual Tab)] 0.4 mg SL PRN PRN #30 tablet PRN Reason: Chest Pain Or Discomfort Prednisone [Deltasone, Orasone] 10 mg PO DAILY #40 tablet Ranolazine [Ranexa] 500 mg PO BID #60 tablet.er Tiotropium Liguori [Spiriva] 18 mcg INH DAILY #1 Discharge Home Medication List Potassium Chloride [Klor-Con M10] 10 meq PO DAILY 10/03/16 [History Confirmed Last Taken 10/03/16] Albuterol/Ipratropium Neb [Duoneb] 3 ml NEB RTQ6 #120 nebu 10/10/16 [Rx Last Taken Unknown] Aspirin 325 mg PO DAILYWM #30 tablet 10/10/16 [Rx Last Taken Unknown] Atorvastatin Calcium [Lipitor] 40 mg PO DAILY@1800 #30 tablet 10/10/16 [Rx Last Taken Unknown] Carvedilol [Coreg] 3.125 mg PO BID #60 tablet 10/10/16 [Rx Last Taken Unknown] Clopidogrel Bisulfate [Plavix] 75 mg PO DAILY #30 tablet 10/10/16 [Rx Last Taken Unknown] Docusate Sodium [Colace] 100 mg PO BID PRN #60 capsule 10/10/16 [Rx Last Taken Unknown] Furosemide [Lasix] 20 mg PO DAILY #30 tablet 10/10/16 [Rx Last Taken Unknown] Lisinopril [Prinivil] 2.5 mg PO DAILY #30 tablet 10/10/16 [Rx Last Taken Unknown ] Nitroglycerin Sublingual Tab [NTG (NitroStat Sublingual Tab)] 0.4 mg SL PRN PRN #30 tablet 10/10/16 [Rx Last Taken Unknown] Prednisone [Deltasone, Orasone] 10 mg PO DAILY #40 tablet 10/10/16 [Rx Last Taken Unknown] Ranolazine [Ranexa] 500 mg PO BID #60 tablet.er 10/10/16 [Rx Last Taken Unknown] Tiotropium Liguori [Spiriva] 18 mcg INH DAILY #1 10/10/16 [Rx Last Taken Unknown] O2 Device: Nasal Cannula Oxygen Flow Rate: 2 Oxygen to be used after Discharge: At Night or During Sleep Diet at Discharge: Heart Healthy, Low Salt Activity: As Tolerated Call Office For: Worsening Symptoms Discontinue use of:: Alcohol, All Types of Tobacco - DC Summary Notes Hospital Course Note:: Discharge summary on patient named SELVIN MORRISON admitted to [facility] on 10/03/16 by Brandan Betancourt MD. Date of discharge is []. The patient is a 66-year-old woman with COPD, hypertension, who presents with acute shortness of breath along with some chest pain. Onset: 3 days ago. Duration: intermittent. Location: left chest. Radiation: to back. Character: 10/10 at times; now it is gone. Dull like a toothache. Alleviated by: Nothing. Exacerbated by: Nothing. Associated Symptoms: Shortness of breath. No diaphoresis. Coughing productive of yellow sputum. Wheezing. Fever, chills. Chest pain but no palpitations. No leg swelling or weight gain. Treatments: none at home except usual medications. She has chronic respiratory failure and wears 2L NC oxygen, but only at night. Cardiac Risk review: Positive for hypertension, smoking, and family history. No known hyperlipidemia or diabetes. She was found to be septic on admission with an acute pneumonia and COPD exacerbation. This caused such severe hypoxia that she also suffered and acute NSTEMI from demand ischemia. She continues to have leukocytosis of 17.0 K but it may be due to steroids. She has completed 7 days of IV Rocephin. Has received adequate fluid resuscitation. Her BP was very low, but has improved. Her blood and sputum cultures are negative. Demand ischemia from hypoxia due to her pneumonia and chronic COPD/hypoxia, was discussed with & again with Dr. Canas. She has a high risk EKG finding consistent with LAD lesion. Anticipate need for cardiac cath after treatment for pneumonia. Elevated BNP of 9050 on admission. Probably has element of diastolic CHF. BNP down to 1360 now. Patient breathing is much better.Her COPD exacerbation was also quite severe, but she is doing much better now. Wears 2L NC at home, but only at night. Initially she required BiPAP on arrival with severe respiratory distress and peripheral O2 sat of only 60 when she arrived in the emergency department. Currently has been weaned to room air, and has improved significantly. Cardiology has recommended that she continue to recover at home, and then go for an outpatient cardiac catheterization when her pulmonary function is more favorable. She will be discharged home today, and is to follow up with Dr. Wren in 1 week, and cardiology also in 1-2 weeks. She has been strictly warned not to resume smoking at the risk of dying from sudden and massive NV. She will be discharged on an intensive cardiac care regimen, in addition to her pulmonary medications. Code: 30095 (>30min.) - Physical Exam Vital Signs: Last Vital Signs Temp 98 F 10/10/16 07:00 Pulse 105 10/10/16 09:00 Resp 24 10/10/16 08:00 BP 127/60 10/10/16 09:00 Pulse Ox 90 L 10/10/16 09:00 Oxygen Pulse Oxygen Saturation 90 O2 Device Nasal Cannula Oxygen Flow Rate 2 Fraction of Inspired Oxygen ( 45 FIO2) Constitutional: No apparent distress, Alert (Awake) Oriented to: Time, Person, Place - HEENT Head: Normal ( normocephalic) Eye: Normal (PERRL, EOMI, Sclera white) Oropharynx: Normal (Pharynx:Moist without exudate,Gums-no swelling) Tympanic Membrane: Normal ENT EAC: Normal Nose: No Symptoms Reported (septum midline) - Respiratory/Cardiovascular Respiratory: Normal - CTA, Diminished Cardiovascular: Normal (REGULAR RHYTHM AND RATE) - GI Auscultation: Normal (NABS) Palpation: Normal (Soft,No rebound or guarding, non distended) Tenderness: Non tender Babcock's Sign: Negative Rectal Exam: Deferred - Musculoskeletal Back: Normal (Non-Tender) Extremities: Normal (Normal tone, Pulses 2+ No cyanosis or edema, FROM) - Integumentary Skin: Warm, Dry Lymphatics: Normal - Neurologic Memory Impaired: Normal Motor Function: Normal Cranial Nerve: Normal Cerebellar: Normal Mood Description: Normal Thought: Coherent Perception: Normal
[2016-10-10 10:24] VITALS: TEMP 97.8
[2016-10-10 12:36] VITALS: BP 109/56; PULSE 90
--- NOTE | 2016-10-11 16:17 | CAPUEKG ---
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
--- NOTE | 2016-10-13 12:46 | CAPUEKG ---
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
== END 2016-10-10 12:29 | disposition home health service (06) | DRG 871 ==
LOC: ED 19:12 → ICU 21:18
PROVIDERS: ADMIT Internal Medicine; ATTEND Family Medicine
PROC: 5A09457 Assistance with Respiratory Ventilation, 24-96 Consecutive Hours, Continuous Positive Airway Pressure (ICD-10-PCS; principal; 2016-10-03)
PROC: 039B3ZZ Drainage of Right Radial Artery, Percutaneous Approach (ICD-10-PCS; 2016-10-03)
DX: A41.9 Sepsis, unspecified organism (principal); J15.9 Unspecified bacterial pneumonia; I21.4 Non-ST elevation (NSTEMI) myocardial infarction; J96.21 Acute and chronic respiratory failure with hypoxia; I11.0 Hypertensive heart disease with heart failure; I50.30 Unspecified diastolic (congestive) heart failure; Z99.81 Dependence on supplemental oxygen; J44.1 Chronic obstructive pulmonary disease with (acute) exacerbation; E86.0 Dehydration; E87.6 Hypokalemia; F17.210 Nicotine dependence, cigarettes, uncomplicated; E78.5 Hyperlipidemia, unspecified; Z71.6 Tobacco abuse counseling; R80.9 Proteinuria, unspecified; Z79.82 Long term (current) use of aspirin; Z79.899 Other long term (current) drug therapy
CPT/HCPCS: 36415; 36600; 71010; 80048; 80053; 80061; 81001; 82550; 82803; 83605; 83690; 83735; 83880; 84132; 84484; 85007; 85027; 85610; 85730; 87040; 87086; 87641; 93005; 93306; 94640; 94660; 94760; 96361; 96365; 96366; 96372; 99284; 99406; G0237; J0696; J1650; J1940; J1956; J2920; J2930; J3480; J3490; J7060; J7620